=== PATIENT | female | born 1950 | race Caucasian/White ===

== ENCOUNTER → 2018-05-28 09:33 | Outpatient (CLI) | payer MEDICARE, SELFPAY ==
[2018-05-28 12:01] LABS: Absolute Lymphocyte Count 2.62 X10^3/ul (0.83-4.51); Absolute Neutrophil Count 2.7 X10^3/uL (2.0-7.7); Basophil# 0.01 X10^3/uL; Basophil% 0.2 % (0-1); Eosinophil# 0.11 X10^3/uL; Eosinophils% 1.8 % (0-5); Hematocrit 41.4 % (37-47); Hemoglobin 13.6 g/dl (12.0-15.0); Lymphocyte # 2.62 X10^3/ul (4.0); Lymphocyte % 43.2 % (19-41); Mean Corp Hgb Conc 32.9 g/gl (32-36); Mean Corpuscular Hgb 28.9 pg (27.0-32.0); Mean Corpuscular Volume 88.1 fL (81-99); Mean Platelet Vol. 10.1 fl (6.2-12.0); Monocyte# 0.56 X10^3/uL; Monocyte% 9.2 % (0-10); Neutrophil # 2.74 X10^3/uL (2.7-7.7); Neutrophil % 45.3 % (47-70); Platelet Count 298 K/mm3 (150-450); RBC Distribution Width CV 13.1 % (11.6-14.6); RBC Distribution Width SD 41.9 fl (35.1-43.9); White Blood Count 6.1 K/mm3 (4.4-11.0)
[2018-05-28 12:08] LABS: POSITIVE COUNT NO; POSITIVE DIFFERENTIAL NO; POSITIVE MORPHOLOGY NO
[2018-05-28 12:19] LABS: AST(SGOT) 21 U/L (15-37); Alanine Aminotransfer ALT/SGPT 24 U/L (13-56); Albumin, Serum 3.7 g/dL (3.2-5.0); Alkaline Phosphatase 70 U/L (45-117); Anion Gap 12 (5-15); BUN 15 mg/dL (7-18); BUN/Creat Ratio 25.1 RATIO (10-20); Chloride 99 mmol/L (98-107); Cholesterol 305 mg/dL (200); EST Glomerular Filtration Rate 106 mL/min (>60); Est Glom Filt Rate - Afr Amer 128 mL/min (>60); Globulin 3.8 g/dL (2.2-4.2); Glucose 107 mg/dL (74-106); High Density Lipoprotein 56 mg/dL; Potassium 4.3 mmol/L (3.5-5.1); Protein, Total 7.5 g/dL (6.4-8.2); Sodium Level 138 mmol/L (136-145); Thyroid Stim Hormone (TSH) 1.25 uIU/mL (0.358-3.74); Triglycerides 275 mg/dL; Very Low Density Lipoprotein 55 mg/dL (5-40)
[2018-05-28 12:24] LABS: Vitamin B12 357 pg/mL (211-911)
== END ==
PROVIDERS: Family Provider Family Medicine; PCP Family Medicine; Visit Provider Family Medicine
DX: E78.5 Hyperlipidemia, unspecified (principal); I10 Essential (primary) hypertension; I65.29 Occlusion and stenosis of unspecified carotid artery; R53.83 Other fatigue
CPT/HCPCS: 36415; 80053; 80061; 82306; 82607; 84443; 85025

== ENCOUNTER → 2018-09-18 12:59 | Outpatient (CLI) | payer MEDICARE, SELFPAY ==
--- NOTE | 2018-09-18 13:02 | BI_ITS ---
MAMMOGRAPHY - BILATERAL SCREENING REASON FOR EXAM: Female, 68 years old. Routine annual screening examination. PERTINENT HISTORY: Non-contributory. Occasional right nipple discomfort. TECHNIQUE: Digital bilateral breast gabriel (3D mammographic acquisition) in the CC and MLO projections. 2-D mediolateral oblique (MLO) and craniocaudad (CC) views of both breasts were obtained. CAD: Full Field Digital Mammography with Computer Added Detection was performed. COMPARISON: Comparison is made with prior arteriogram examination dated April 18, 2008. FINDINGS: Breast Composition: The breasts are almost entirely fatty. There are no dominant masses or suspicious calcifications. Stable small bilateral axillary lymph nodes. No other significant abnormalities are identified. There has been no significant change since the prior study. BI/SCREENING MAMM (CAD), BILAT IMPRESSION: Stable bilateral screening mammogram. Yearly follow-up mammogram recommended. (A) ASSESSMENT CATEGORY: BIRADS Category 2: Benign. A letter regarding these results will be sent to the patient by the facility within 30 days. Approximately 10% of breast cancers are not detected by mammography. A normal mammogram should not delay biopsy of a clinically suspicious abnormality. [id number] Electronically Signed: Sal Hill MD at 15:21 EST Tel [phone], Service support ,
== END ==
PROVIDERS: Family Provider Family Medicine; PCP Family Medicine; Referring Provider Family Medicine; Visit Provider Family Medicine
DX: Z12.31 Encounter for screening mammogram for malignant neoplasm of breast (principal)
CPT/HCPCS: 77063; 77067

== ENCOUNTER → 2018-10-02 08:43 | Outpatient (CLI) | payer MEDICARE, SELFPAY ==
[2018-10-02 12:55] LABS: Hemoglobin A1c 6.3 % (4.2-6.3)
[2018-10-02 13:09] LABS: ALB/GLOB Ratio 1.1 RATIO (0.9-2.4); AST(SGOT) 19 U/L (15-37); Alanine Aminotransfer ALT/SGPT 20 U/L (13-56); Albumin, Serum 3.6 g/dL (3.2-5.0); Alkaline Phosphatase 60 U/L (45-117); Anion Gap 9 (5-15); BUN 18 mg/dL (7-18); BUN/Creat Ratio 31.5 RATIO (10-20); Calcium,Total 8.9 mg/dL (8.5-10.1); Chloride 101 mmol/L (98-107); Cholesterol 302 mg/dL (200); Creatinine, Serum 0.57 mg/dL (0.55-1.02); EST Glomerular Filtration Rate 111 mL/min (>60); Est Glom Filt Rate - Afr Amer 135 mL/min (>60); Globulin 3.4 g/dL (2.2-4.2); Glucose 104 mg/dL (74-106); High Density Lipoprotein 57 mg/dL; Sodium Level 139 mmol/L (136-145); Triglycerides 231 mg/dL; Very Low Density Lipoprotein 46 mg/dL (5-40)
--- OUTSIDE RECORDS SUMMARY | 2018-11-13 21:33 | XMS RPT_ITS ---
:1950 Author Organization [facility] Care Team Providers Name Role Phone Malys, Rosalina Attending Unavailable Malys, Rosalina Primary Care Unavailable Malys, Rosalina Attending Unavailable Malys, Rosalina Primary Care Unavailable Malys, Rosalina Attending Unavailable Malys, Rosalina Primary Care Unavailable Malys, Rosalina Attending Unavailable Malys, Rosalina Referring Unavailable Malys, Rosalina Primary Care Unavailable PROBLEMS PROBLEMS DATE TYPE CONDITION / CODE ATTENDING STATUS SOURCE 10/24/2017 Unknown E78.5 - Malys, Rosalina Active [place] Hyperlipidemia, Community unspecified / Hospital E78.5(ICD-10) Repository 10/24/2017 Unknown I10 - Essential Malys, Rosalina Active [place] (primary) Community hypertension / Hospital I10(ICD-10) Repository 10/24/2017 Unknown M81.0 - Malkelsey, Rosalina Active [place] Age-related [facility]ly [facility] osteoporosis Hospital without current Repository pathological fracture / M81.0(ICD-10) 10/24/2017 Unknown 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, 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 stenosis of Community unspecified Hospital carotid artery / Repository I65.29(ICD-10) 10/24/2017 Unknown E55.9 - Vitamin D Malys, Rosalina Active [place] deficiency, Community unspecified / Hospital E55.9(ICD-10) Repository 10/24/2017 Unknown E53.8 - Deficiency Malys, Rosalina Active [place] of other specified Community B group vitamins / Hospital E53.8(ICD-10) Repository 10/24/2017 Unknown R53.83 - Other Malys, Rosalina Active [place] fatigue / Community R53.83(ICD-10) Hospital Repository 10/24/2017 Unknown Z51.81 - Encounter Rosalina Valentine Active [place] for therapeutic Community drug level Hospital monitoring / Repository Z51.81(ICD-10) PROCEDURES PROCEDURES No Procedure Records FoundRESULTS RESULTS HEMOGLOBIN A1C Collected: 10/02/2018 Status: F Source: [place] 8:46 AM [facility] REPOSITORY TYPE CODE TESTS RESULT OUT OF RANGE REFERENCE UNITS LAB L501.9985 4.2-6.3 % Normal HGB A1C 6.3 Performed By: #### L501.9985 #### [facility] [address] [place], [address] COMPREHENSIVE METABOLIC Collected: 10/02/2018 Status: F Source: [facility] 8:46 AM [facility] REPOSITORY TYPE CODE TESTS RESULT OUT OF RANGE REFERENCE UNITS LAB L501.0100 74-106 mg/dL Normal GLU 104 Result Comment: Fasting Glucose result from 100 to 125 mg/dL suggests IMPAIRED HOMEOSTASIS per A.D.A. criteria. Please note revised GLUCOSE reference range effective 2017. LAB L501.1000 7-18 mg/dL Normal BUN 18 LAB L501.1100 0.55-1.02 mg/dL Normal CREAT,SERUM 0.57 Result Comment: The validity of the calculated GFR AND GFRAA in patients over 70 years has not been determined. Clinical correlation is essential. LAB L501.1110 >60 mL/min Normal EST GFR 111 Result Comment: Non- GFR Calc LAB L501.1115 >60 mL/min Normal EST GFR - AA 135 Result Comment: GFR Calc LAB L501.1300 10-20 RATIO High BUN/CRE 31.5 LAB L501.1500 6.4-8.2 g/dL T Normal PROT 7.0 LAB L501.1800 3.2-5.0 g/dL Normal ALB 3.6 LAB L501.1950 2.2-4.2 g/dL Normal GLOB 3.4 LAB L501.2000 0.9-2.4 RATIO Normal A/G 1.1 LAB L501.2200 8.5-10.1 mg/dL CA Normal 8.9 LAB L501.4100 15-37 U/L Normal AST 19 LAB L501.4305 45-117 U/L Normal ALK P 60 LAB L501.4405 13-56 U/L Normal ALT 20 LAB L501.4600 0.20-1.00 mg/dL T Normal BILI 0.40 LAB L501.5300 136-145 mmol/L NA Normal 139 LAB L501.5600 3.5-5.1 mmol/L K Normal 4.0 LAB L501.5900 98-107 mmol/L CL Normal 101 LAB L501.6100 21.0-32.0 mmol/L Normal CO2 29.0 LAB L501.6200 5-15 Normal GAP 9 Performed By: #### L500.4050, L500.4100 #### [facility] [address] [place], [place], [address] LIPID PROFILE Collected: 10/02/2018 Status: F Source: [place] 8:46 AM [facility] REPOSITORY TYPE CODE TESTS RESULT OUT OF RANGE REFERENCE UNITS LAB L501.4900 200 mg/dL High CHOL 302 Result Comment: <200 mg/dL Desirable 200-240 mg/dL Borderline >240 mg/dL High Risk LAB L501.5000 mg/dL High TRIG 231 Result Comment: The drugs N-Acetylcysteine and Metamizole may falsely depress this assay. Serum Triglycerides Reference Interval Normal <150 mg/dL Borderline high 150 - 199 mg/dL High 200 - 499 mg/dL Very High > or = 500 mg/dL LAB L501.6400 mg/dL Normal HDL 57 Result Comment: The drugs N-Acetylcysteine and Metamizole may falsely depress this assay. Reference Range HDL <40 mg/dL Low HDL Cholesterol HDL >or= 60 mg/dL High HDL Cholesterol LAB L501.6500 0-130 mg/dL High LDL 199 LAB L501.6600 5-40 mg/dL High VLDL 46 Performed By: #### L500.4050, L500.4100 #### [facility] [address] [place], [address] SCREENING MAMM (CAD), Observed: 09/18/2018 Status: F Source: [place] BIL[place] 1:02 PM [facility] REPOSITORY [facility] Imaging Services [address] [place] [address] SCREENING MAMM (CAD), BILAT MR#: [id number] Acct: [id number] Name: JACQUI MAS Rep #: [id number] : 1950 F 68 From: Sal Hill MD PCP: Rosalina Valentine DO Status: REG CLI Study: SCREENING MAMM (CAD), BILAT Date of Exam: 09/18/18 Exam# [id number] Ordering Dr: Rosalina Valentine DO MAMMOGRAPHY - BILATERAL SCREENING REASON FOR EXAM: Female, 68 years old. Routine annual screening examination. PERTINENT HISTORY: Non-contributory. Occasional right nipple discomfort. TECHNIQUE: Digital bilateral breast gabriel (3D mammographic acquisition) in the CC and MLO projections. 2-D mediolateral oblique (MLO) and craniocaudad (CC) views of both breasts were obtained. CAD: Full Field Digital Mammography with Computer Added Detection was performed. COMPARISON: Comparison is made with prior arteriogram examination dated April 18, 2008. FINDINGS: Breast Composition: The breasts are almost entirely fatty. There are no dominant masses or suspicious calcifications. Stable small bilateral axillary lymph nodes. No other significant abnormalities are identified. There has been no significant change since the prior study. BI/SCREENING MAMM (CAD), BILAT IMPRESSION: Stable bilateral screening mammogram. Yearly follow-up mammogram recommended. (A) ASSESSMENT CATEGORY: BIRADS Category 2: Benign. A letter regarding these results will be sent to the patient by the facility within 30 days. Approximately 10% of breast cancers are not detected by mammography. A normal mammogram should not delay biopsy of a clinically suspicious abnormality. 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 CBC W/DIFF, AUTOMATED Collected: 05/28/2018 Status: F Source: [place] 9:38 AM [facility] REPOSITORY TYPE CODE TESTS RESULT OUT OF RANGE REFERENCE UNITS LAB L100.1000 4.4-11.0 K/mm3 Normal WBC 6.1 LAB L100.1200 4.2-5.4 M/mm3 Normal RBC 4.70 LAB L100.1300 12.0-15.0 g/dl Normal HGB 13.6 LAB L100.1400 37-47 % Normal HCT 41.4 LAB L100.1500 81-99 fL Normal MCV 88.1 LAB L100.1600 27.0-32.0 pg Normal MCH 28.9 LAB L100.1700 32-36 g/gl Normal MCHC 32.9 LAB L100.1810 11.6-14.6 % Normal RDW CV 13.1 LAB L100.1820 35.1-43.9 fl Normal RDW SD 41.9 LAB L100.1900 150-450 K/mm3 Normal PLT 298 LAB L100.2000 6.2-12.0 fl Normal MPV 10.1 LAB L100.2100 47-70 % Low NEUT% 45.3 LAB L100.2200 19-41 % High LY% 43.2 LAB L100.2300 0-10 % Normal MONO% 9.2 LAB L100.2400 0-5 % Normal EO% 1.8 LAB L100.2500 0-1 % Normal BASO% 0.2 LAB L100.2550 0.0-0.9 % Normal IM GRAN % 0.300 Result Comment: IG% - Immature Granulocytes (promyelocytes, myelocytes and metamyelocytes) > 1% indicates that a LEFT SHIFT is Present. LAB L100.2620 2.0-7.7 X10 3/uL Normal Absolute Neut 2.7 LAB L100.2720 0.83-4.51 X10 3/ul Normal Absolute Lymph 2.62 Performed By: #### L100.0100 #### [facility] [address] [place], [address] COMPREHENSIVE METABOLIC Collected: 05/28/2018 Status: F Source: [facility] 9:38 AM [facility] REPOSITORY TYPE CODE TESTS RESULT OUT OF RANGE REFERENCE UNITS LAB L501.0100 74-106 mg/dL High GLU 107 Result Comment: Fasting Glucose result from 100 to 125 mg/dL suggests IMPAIRED HOMEOSTASIS per A.D.A. criteria. Please note revised GLUCOSE reference range effective 2017. LAB L501.1000 7-18 mg/dL Normal BUN 15 LAB L501.1100 0.55-1.02 mg/dL Normal CREAT,SERUM 0.60 Result Comment: The validity of the calculated GFR AND GFRAA in patients over 70 years has not been determined. Clinical correlation is essential. LAB L501.1110 >60 mL/min Normal EST GFR 106 Result Comment: Non- GFR Calc LAB L501.1115 >60 mL/min Normal EST GFR - AA 128 Result Comment: GFR Calc LAB L501.1300 10-20 RATIO High BUN/CRE 25.1 LAB L501.1500 6.4-8.2 g/dL T Normal PROT 7.5 LAB L501.1800 3.2-5.0 g/dL Normal ALB 3.7 LAB L501.1950 2.2-4.2 g/dL Normal GLOB 3.8 LAB L501.2000 0.9-2.4 RATIO Normal A/G 1.0 LAB L501.2200 8.5-10.1 mg/dL CA Normal 9.0 LAB L501.4100 15-37 U/L Normal AST 21 LAB L501.4305 45-117 U/L Normal ALK P 70 LAB L501.4405 13-56 U/L Normal ALT 24 LAB L501.4600 0.20-1.00 mg/dL T Normal BILI 0.30 LAB L501.5300 136-145 mmol/L NA Normal 138 LAB L501.5600 3.5-5.1 mmol/L K Normal 4.3 LAB L501.5900 98-107 mmol/L CL Normal 99 LAB L501.6100 21.0-32.0 mmol/L Normal CO2 27.0 LAB L501.6200 5-15 Normal GAP 12 Performed By: #### L500.4050, L500.4100, L501.9520 #### [facility] [address] [facility] [place], [address] LIPID PROFILE Collected: 05/28/2018 Status: F Source: [place] 9:38 AM [facility] REPOSITORY TYPE CODE TESTS RESULT OUT OF RANGE REFERENCE UNITS LAB L501.4900 200 mg/dL High CHOL 305 Result Comment: <200 mg/dL Desirable 200-240 mg/dL Borderline >240 mg/dL High Risk LAB L501.5000 mg/dL High TRIG 275 Result Comment: The drugs N-Acetylcysteine and Metamizole may falsely depress this assay. Serum Triglycerides Reference Interval Normal <150 mg/dL Borderline high 150 - 199 mg/dL High 200 - 499 mg/dL Very High > or = 500 mg/dL LAB L501.6400 mg/dL Normal HDL 56 Result Comment: The drugs N-Acetylcysteine and Metamizole may falsely depress this assay. Reference Range HDL <40 mg/dL Low HDL Cholesterol HDL >or= 60 mg/dL High HDL Cholesterol LAB L501.6500 0-130 mg/dL High LDL 194 LAB L501.6600 5-40 mg/dL High VLDL 55 Performed By: #### L500.4050, L500.4100, L501.9520 #### [facility] [address] [facility], [address] THYROID STIM HORMONE Collected: 05/28/2018 Status: F Source: [place] (TSH) 9:38 AM [facility] REPOSITORY TYPE CODE TESTS RESULT OUT OF RANGE REFERENCE UNITS LAB L501.9520 0.358-3.74 uIU/mL Normal TSH 1.25 Performed By: #### L500.4050, L500.4100, L501.9520 #### [facility] [address], [address] VITAMIN B12 Collected: 05/28/2018 Status: F Source: [place] 9:38 AM [facility] REPOSITORY TYPE CODE TESTS RESULT OUT OF RANGE REFERENCE UNITS LAB L503.0105 211-911 pg/mL Normal Vitamin B12 357 Performed By: #### L503.0105, L506.1000 #### [facility] [address] [place], [address] VITAMIN D,25 HYDROXY Collected: 05/28/2018 Status: F Source: [place] 9:38 AM [facility] REPOSITORY TYPE CODE TESTS RESULT OUT OF REFERENCE UNITS RANGE LAB L506.1000 29.95-100.01 ng/mL Low Vitamin D 29.0 25-OH Result Comment: Vitamin D 25(OH) Status Range Deficiency <20 ng/mL (50nmol/L) Insuffciency 20 - 30 ng/mL (50 - 75 nmol/L) Sufficiency 30 - 100 ng/mL (75 - 250 nmol/L) Toxicity >100 ng/mL (>250 nmol/L) Performed By: #### L503.0105, L506.1000 #### [facility] [address] [place], [address] CBC W/DIFF, AUTOMATED Collected: 10/24/2017 Status: F Source: [place] 9:52 AM [facility] REPOSITORY TYPE CODE TESTS RESULT OUT OF RANGE REFERENCE UNITS LAB L100.1000 4.4-11.0 K/mm3 Normal WBC 5.7 LAB L100.1200 4.2-5.4 M/mm3 Normal RBC 4.78 LAB L100.1300 12.0-15.0 g/dl Normal HGB 13.9 LAB L100.1400 37-47 % Normal HCT 42.1 LAB L100.1500 81-99 fL Normal MCV 88.1 LAB L100.1600 27.0-32.0 pg Normal MCH 29.1 LAB L100.1700 32-36 g/gl Normal MCHC 33.0 LAB L100.1810 11.6-14.6 % Normal RDW CV 12.5 LAB L100.1820 35.1-43.9 fl Normal RDW SD 39.9 LAB L100.1900 150-450 K/mm3 Normal PLT 304 LAB L100.2000 6.2-12.0 fl Normal MPV 10.2 LAB L100.2100 47-70 % Low NEUT% 42.4 LAB L100.2200 19-41 % High LY% 45.6 LAB L100.2300 0-10 % Normal MONO% 9.8 LAB L100.2400 0-5 % Normal EO% 1.8 LAB L100.2500 0-1 % Normal BASO% 0.2 LAB L100.2550 0.0-0.9 % Normal IM GRAN % 0.200 Result Comment: IG% - Immature Granulocytes (promyelocytes, myelocytes and metamyelocytes) > 1% indicates that a LEFT SHIFT is Present. LAB L100.2620 2.0-7.7 X10 3/uL Normal Absolute Neut 2.4 LAB L100.2720 0.83-4.51 X10 3/ul Normal Absolute Lymph 2.60 Performed By: #### L100.0100 #### [facility] [address] [place], [place], [address] COMPREHENSIVE METABOLIC Collected: 10/24/2017 Status: F [facility] REPOSITORY TYPE CODE TESTS RESULT OUT OF RANGE REFERENCE UNITS LAB L501.0100 70-110 mg/dL Normal GLU 108 LAB L501.1000 7-18 mg/dL Normal BUN 13 LAB L501.1100 0.55-1.02 mg/dL Normal 0.58 CREAT,SERUM Result Comment: The validity of the calculated GFR AND GFRAA in patients over 70 years has not been determined. Clinical correlation is essential. LAB L501.1110 >60 mL/min Normal EST GFR 109 Result Comment: Non- GFR Calc LAB L501.1115 >60 mL/min Normal EST GFR - AA 132 Result Comment: GFR Calc LAB L501.1300 10-20 RATIO High BUN/CRE 22.2 LAB L501.1500 6.4-8.2 g/dL T Normal PROT 7.4 LAB L501.1800 3.4-5.0 g/dL Normal ALB 3.9 Result Comment: Please note revised Albumin AND Globulin reference range effective 2017. LAB L501.1950 2.2-4.2 g/dL Normal GLOB 3.5 LAB L501.2000 0.9-2.4 RATIO Normal A/G 1.1 LAB L501.2200 8.5-10.1 mg/dL Normal CA 8.8 LAB L501.4100 15-37 U/L Normal AST 21 LAB L501.4305 45-117 U/L Normal ALK P 75 LAB L501.4405 12-78 U/L Normal ALT 23 LAB L501.4600 0.20-1.00 mg/dL Normal T BILI 0.40 LAB L501.5300 136-145 mmol/L Normal NA 137 LAB L501.5600 3.5-5.1 mmol/L Normal K 4.1 LAB L501.5900 98-107 mmol/L Normal CL 101 LAB L501.6100 21.0-32.0 mmol/L Normal CO2 26.0 LAB L501.6200 5-15 Normal GAP 10 Performed By: #### L500.4050, L500.4100, L501.9520 #### [facility] [address] [place], [address] LIPID PROFILE Collected: 10/24/2017 Status: F Source: [place] 9:52 AM [facility] REPOSITORY TYPE CODE TESTS RESULT OUT OF RANGE REFERENCE UNITS LAB L501.4900 200 mg/dL High CHOL 285 Result Comment: <200 mg/dL Desirable 200-240 mg/dL Borderline >240 mg/dL High Risk LAB L501.5000 mg/dL High TRIG 209 Result Comment: The drugs N-Acetylcysteine and Metamizole may falsely depress this assay. Serum Triglycerides Reference Interval Normal <150 mg/dL Borderline high 150 - 199 mg/dL High 200 - 499 mg/dL Very High > or = 500 mg/dL LAB L501.6400 mg/dL Normal HDL 61 Result Comment: The drugs N-Acetylcysteine and Metamizole may falsely depress this assay. Reference Range HDL <40 mg/dL Low HDL Cholesterol HDL >or= 60 mg/dL High HDL Cholesterol LAB L501.6500 0-130 mg/dL High LDL 182 LAB L501.6600 5-40 mg/dL High VLDL 42 Performed By: #### L500.4050, L500.4100, L501.9520 #### [facility] [address] [place], [address] THYROID STIM HORMONE Collected: 10/24/2017 Status: F Source: [place] (TSH) 9:52 AM [facility] REPOSITORY TYPE CODE TESTS RESULT OUT OF RANGE REFERENCE UNITS LAB L501.9520 0.358-3.74 uIU/mL Normal TSH 1.20 Performed By: #### L500.4050, L500.4100, L501.9520 #### [facility] [address] [place], [address] VITAMIN B12 Collected: 10/24/2017 Status: F Source: [place] 9:52 AM [facility] REPOSITORY TYPE CODE TESTS RESULT OUT OF RANGE REFERENCE UNITS LAB L503.0105 211-911 pg/mL Normal Vitamin B12 527 Performed By: #### L503.0105, L506.1000 #### [facility] [address] [place], [address] VITAMIN D,25 HYDROXY Collected: 10/24/2017 Status: F Source: [place] 9:52 AM [facility] REPOSITORY TYPE CODE TESTS RESULT OUT OF RANGE REFERENCE UNITS LAB L506.1000 ng/mL Normal Vitamin D 34.7 25-OH Result Comment: Vitamin D 25(OH) Status Range Deficiency <20 ng/mL (50nmol/L) Insuffciency 20 - 30 ng/mL (50 - 75 nmol/L) Sufficiency 30 - 100 ng/mL (75 - 250 nmol/L) Toxicity >100 ng/mL (>250 nmol/L) Performed By: #### L503.0105, L506.1000 #### [facility] [address] [place], [address] ALLERGIES ALLERGIES No Allergies Records FoundENCOUNTERS ENCOUNTERS ADMIT/DISCHARGE ACCOUNT ADMITTING ENCOUNTER LOCATION SOURCE NUMBER CLASS 10/02/2018 [id number] Ambulatory [facility] 1 [facility] ing:LAB.FUTUR Repository E 09/18/2018 [id number] Amb[facility] [place] 2 [facility] ing:OPBI Repository 05/28/2018 [id number] Amb[facility] [place] 0 [facility] ing:LAB.FUTUR Repository E 10/24/2017 [id number] Ambulatory [place] 4 [facility] ing:LAB.FUTUR Repository E PAYERS PAYERS ENCOUNTER GUARANTOR PAYER SUBSCRIBER SOURCE 10/02/2018 JACQUI Ellis Primary Insurance:MMO JACQUI Ellis [place] [id number] DIPIKA MEDICAREPolicy SUSTARDOB: [place], [place] Number: [id number] [facility] [address]Zpw: 330 [id number] Repository [phone] () Date:[id number] [address] [id number]: 10/02/2018 Secondary NOT GIVENUNK [place] Insurance:SELF PAY [facility] Number: Effective Repository Date:2018-08-29 09/18/2018 THEA Tejeda Primary Insurance:MMO JACQUI Lópezoster [id number] DIPIKA MEDICAREPolicy SUSTARDOB: [place], [place] Number: [id number] Hospital [address]Qow: 330 [id number] Repository [phone] () Date:[id number] [address] [address]DU: 09/18/2018 Secondary NOT GIVENUNK [place] Insurance:SELF PAY [facility] Number: Effective Repository Date:2018-09-06 05/28/2018 Thea Tejeda Primary Insurance:MMO JACQUI Lópezoster [id number] Dipika MEDICAREPolicy SUSTARDOB: [place], [place] Number: [id number] Hospital [address]Llo: 330 [id number] Repository [phone] () Date:[id number] [address] [address]CX: 05/28/2018 Secondary NOT GIVENUNK [place] Insurance:SELF PAY [facility] Number: Effective Repository Date:2018-04-17 10/24/2017 Thea Tejeda Primary Insurance:JUANO JACQUI Pham [id number] Dipika MEDICAREPolicy SUSTARDOB: [place], [place] Number: [id number] [facility] [address]Rxq: [phone] [id number] Repository [phone] () Date:[id number], [place] [address]UU: 10/24/2017 Secondary NOT GIVENUNK [place] Insurance:SELF PAY [facility] Number: Effective Repository Date:2017-10-23
== END ==
PROVIDERS: Family Provider Family Medicine; PCP Family Medicine; Visit Provider Family Medicine
DX: E78.5 Hyperlipidemia, unspecified (principal); R73.01 Impaired fasting glucose; Z51.81 Encounter for therapeutic drug level monitoring
CPT/HCPCS: 36415; 80053; 80061; 83036

== ENCOUNTER → 2019-08-02 09:28 | Outpatient (CLI) | payer MEDICARE, SELFPAY ==
[2019-08-02 12:21] LABS: Absolute Lymphocyte Count 2.56 X10^3/uL (0.83-4.51); Absolute Neutrophil Count 2.4 X10^3/uL (2.0-7.7); Basophil# 0.03 X10^3/uL; Basophil% 0.5 % (0-1); Eosinophil# 0.09 X10^3/uL; Eosinophils% 1.6 % (0-5); Hematocrit 42.6 % (37-47); Hemoglobin 13.4 g/dL (12.0-15.0); Lymphocyte # 2.56 X10^3/ul (4.0); Lymphocyte % 45.9 % (19-41); Mean Corp Hgb Conc 31.5 g/dL (32-36); Mean Corpuscular Hgb 28.2 pg (27.0-32.0); Mean Corpuscular Volume 89.5 fL (81-99); Mean Platelet Vol. 9.9 fl (6.2-12.0); NRBC Flagged by Analyzer 0 % (0-5); Neutrophil # 2.38 X10^3/uL (2.7-7.7); Neutrophil % 42.6 % (47-70); Platelet Count 337 K/mm3 (150-450); RBC Distribution Width CV 12.3 % (11.6-14.6); RBC Distribution Width SD 40.5 fl (35.1-43.9); Red Blood Count 4.76 M/mm3 (4.2-5.4); White Blood Count 5.6 K/mm3 (4.4-11.0)
[2019-08-02 12:37] LABS: Progesterone Level 0.56 ng/mL (See Comment); Vitamin D,25 Hydroxy 41.1 ng/mL (29.95-100.01)
[2019-08-02 14:09] LABS: ALB/GLOB Ratio 1.1 RATIO (0.9-2.4); AST(SGOT) 19 U/L (15-37); Alanine Aminotransfer ALT/SGPT 20 U/L (13-56); Albumin, Serum 3.7 g/dL (3.2-5.0); Alkaline Phosphatase 71 U/L (45-117); Anion Gap 9 (5-15); BUN 11 mg/dL (7-18); BUN/Creat Ratio 20.3 RATIO (10-20); CRP 3.24 mg/L (0.0-3.0); Calcium,Total 8.9 mg/dL (8.5-10.1); Chloride 104 mmol/L (98-107); Cholesterol 292 mg/dL (200); Creatinine, Serum 0.54 mg/dL (0.55-1.02); EST Glomerular Filtration Rate 118 mL/min (>60); Est Glom Filt Rate - Afr Amer 143 mL/min (>60); Estradiol < 11.0 pg/mL; Free T3 3.3 pg/mL (2.18-3.98); Globulin 3.4 g/dL (2.2-4.2); Glucose 106 mg/dL (74-106); High Density Lipoprotein 57 mg/dL; Potassium 4.1 mmol/L (3.5-5.1); Protein, Total 7.1 g/dL (6.4-8.2); Sodium Level 142 mmol/L (136-145); T4 Free Direct 1.08 ng/dL (0.76-1.46); Thyroid Stim Hormone (TSH) 1.42 uIU/mL (0.358-3.74); Triglycerides 239 mg/dL; Very Low Density Lipoprotein 48 mg/dL (5-40)
[2019-08-03 06:07] LABS: DHEA Sulfate 141.6 ug/dL (20.4-186.6)
[2019-08-03 11:39] LABS: Thyroid Peroxidase AB 13 IU/mL (0-34)
== END ==
PROVIDERS: Family Provider Family Medicine; PCP Family Medicine; Referring Provider Preventive Medicine Public Health & General Preventive Medicine; Visit Provider Preventive Medicine Public Health & General Preventive Medicine
DX: E03.9 Hypothyroidism, unspecified (principal); E34.9 Endocrine disorder, unspecified; N95.1 Menopausal and female climacteric states; E55.9 Vitamin D deficiency, unspecified; E27.49 Other adrenocortical insufficiency; I10 Essential (primary) hypertension; E78.5 Hyperlipidemia, unspecified
CPT/HCPCS: 36415; 80053; 80061; 82306; 82533; 82627; 82670; 84144; 84403; 84439; 84443; 84481; 85025; 86140; 86376; 82626

== ENCOUNTER → 2020-03-03 08:57 | Outpatient (CLI) | payer MEDICARE, SELFPAY ==
--- NOTE | 2020-03-03 09:01 | US_ITS ---
STUDY: ULTRASOUND BREAST - LEFT REASON FOR EXAM: Female, 69 years old. Swelling/palpable lump in the left axillary region. TECHNIQUE: Axial and longitudinal images of the LEFT breast were performed with a high resolution ultrasound transducer. # OF IMAGES: 24 COMPARISON: Comparison is made with prior mammogram done earlier in the day. FINDINGS: LEFT Breast: The palpable abnormality corresponds to a 1.7 cm x 1.2 cm x 0.9 cm benign-appearing lymph node. US/Breast Limited Unilateral IMPRESSION: The palpable abnormality corresponds to a 1.7 cm x 1.2 cm x 0.9 cm x 9 appearing lymph node. ASSESSMENT CATEGORY: BIRADS Category 2: Benign. A letter regarding these results will be sent to the patient by the facility within 30 days. Electronically Signed: Sal Hill, at 11:54 EDT , Service support ,
--- NOTE | 2020-03-03 09:01 | BI_ITS ---
MAMMOGRAPHY - BILATERAL DIAGNOSTIC REASON FOR EXAM: Female, 69 years old. Left axillary swelling for 2 weeks. PERTINENT HISTORY: Non-contributory. TECHNIQUE: Digital bilateral breast garbiel (3D mammographic acquisition) in the CC and MLO projections. 2-D mediolateral oblique (MLO) and craniocaudad (CC) views of both breasts were obtained. CAD: Full Field Digital Mammography with Computer Added Detection was performed. COMPARISON: Comparison is made with prior examination dated September 18, 2018. FINDINGS: Breast Composition: The breasts are almost entirely fatty. There are no dominant masses or suspicious calcifications. Stable benign-appearing bilateral axillary lymph nodes. Stable scattered calcifications in the right breast. No other significant abnormalities are identified. There has been no significant change since the prior study. BI/DIAG MAMM W/CAD, BILAT IMPRESSION: Stable bilateral diagnostic mammogram. With the patient''s history of left axillary swelling, correlation with ultrasound of the left breast is recommended for further evaluation. ASSESSMENT CATEGORY: BIRADS Category 0: Incomplete. Need additional imaging evaluation. A letter regarding these results will be sent to the patient by the facility within 30 days. Approximately 10% of breast cancers are not detected by mammography. A normal mammogram should not delay biopsy of a clinically suspicious abnormality. Electronically Signed: Sal Hill, at 11:28 EDT , Service support ,
== END ==
PROVIDERS: PCP Family Medicine; Referring Provider Family Medicine; Visit Provider Family Medicine
DX: N63.20 Unspecified lump in the left breast, unspecified quadrant (principal)
CPT/HCPCS: 76642; 77062; 77066; G0279

== ENCOUNTER → 2020-06-05 07:52 | Outpatient (CLI) | payer MEDICARE, SELFPAY ==
--- NOTE | 2020-06-05 07:54 | US_ITS ---
STUDY: ULTRASOUND BREAST - LEFT REASON FOR EXAM: Female, 69 years old. Follow-up for left axillary lymph node. TECHNIQUE: Axial and longitudinal images of the LEFT breast were performed with a high resolution ultrasound transducer. # OF IMAGES: 27 COMPARISON: Comparison is made with prior ultrasound of the left breast dated 03/03/2020. FINDINGS: LEFT Breast: There is a 1.4 cm x 1.6 cm x 1 cm benign appearing lymph node in the axillary region. Adjacent to this, a similar appearing lymph node measuring 1.4 cm x 1.4 cm x 0.9 cm is seen. US/Breast Limited Unilateral IMPRESSION: Findings in keeping with the 2 benign-appearing left axillary lymph nodes. ASSESSMENT CATEGORY: BIRADS Category 2: Benign. A letter regarding these results will be sent to the patient by the facility within 30 days. Electronically Signed: Sal Hill, at 12:31 EDT , Service support ,
== END ==
PROVIDERS: PCP Family Medicine; Referring Provider Family Medicine; Visit Provider Family Medicine
DX: N63.21 Unspecified lump in the left breast, upper outer quadrant (principal)
CPT/HCPCS: 76642

== ENCOUNTER → 2020-10-07 11:54 | Outpatient (CLI) | payer MEDICARE, SELFPAY ==
[2020-10-07 15:57] LABS: Free T3 3.8 pg/mL (2.18-3.98); T4 Free Direct 1.09 ng/dL (0.76-1.46); Thyroid Stim Hormone (TSH) 0.65 uIU/mL (0.358-3.74)
== END ==
PROVIDERS: PCP Family Medicine; Visit Provider Family Medicine
DX: E03.9 Hypothyroidism, unspecified (principal)
CPT/HCPCS: 36415; 84439; 84443; 84481

== ENCOUNTER → 2021-03-29 14:16 | Outpatient (CLI) | payer MEDICARE, SELFPAY | PROVIDERS: PCP Family Medicine; Referring Provider Family Medicine; Visit Provider Family Medicine | DX: Z86.16 Personal history of COVID-19 (principal) | CPT/HCPCS: 36415; 86769 ==

== ENCOUNTER 2021-11-08 14:14 | Outpatient (CLI) | payer MEDICARE, SELFPAY | END 2021-11-08 23:59 | disposition short-term general hospital (02) | LOC: LABSPEC 14:15 | PROVIDERS: PCP Family Medicine; Visit Provider Family Medicine | DX: Z20.828 Contact with and (suspected) exposure to other viral communicable diseases (principal) | CPT/HCPCS: 87635; U0003; U0005 ==

== ENCOUNTER 2021-12-28 08:43 | Outpatient (CLI) | payer MEDICARE, SELFPAY | END 2021-12-28 23:59 | disposition home or self-care (01) | LOC: LABSPEC 08:45 | PROVIDERS: PCP Family Medicine; Visit Provider Family Medicine | DX: U07.1 COVID-19 (principal) | CPT/HCPCS: 87635; U0003; U0005 ==

== ENCOUNTER 2022-01-12 15:55 | Outpatient (CLI) | payer MEDICARE, SELFPAY ==
--- NOTE | 2022-01-12 15:58 | CT_ITS ---
STUDY: CT BRAIN WITH AND WITHOUT CONTRAST REASON FOR EXAM: Female, 71 years old. JOY/COGNITIVE CHANGES RADIATION DOSAGE (If Supplied By Facility): CTDIvol = ( 44.99 ) mGy, DLP = ( 1547.23 ) mGycm TECHNIQUE: Transaxial CT imaging of the brain was performed pre and post contrast administration. The examination was performed with intravenous administration of IV 50mL Isovue-370. Individualized dose optimization techniques were used for this CT. COMPARISON: None. FINDINGS: No evidence of intracranial hemorrhage, mass, acute infarct, or hydrocephalus. The brain has normal density and volume for age. No abnormal enhancement. No intracranial DVT. Atherosclerosis of the intracranial arteries. No acute osseous abnormality. Visualized paranasal sinuses and mastoid air cells patent. Visualized extracranial soft tissues unremarkable. ASPECTS 08/15 CT/Brain/Head W/WO Contrast IMPRESSION: No acute intracranial findings. Electronically Signed: Thor Curran MD at 0:33 EST ,
[2022-01-12 16:11] LABS: CREATININE FINGERSTICK < 0.6 mg/dL (0.55-1.02); EGFR FINGERSTICK > 60.0000 mL/min (>60)
== END 2022-01-12 23:59 | disposition home or self-care (01) ==
LOC: CT 15:57
PROVIDERS: PCP Family Medicine; Referring Provider Family Medicine; Visit Provider Family Medicine
DX: R41.89 Other symptoms and signs involving cognitive functions and awareness (principal); R51.9 Headache, unspecified; H53.9 Unspecified visual disturbance
CPT/HCPCS: 70470; Q9967

== ENCOUNTER 2022-09-21 13:01 | Outpatient (CLI) | payer MEDICARE, SELFPAY ==
--- NOTE | 2022-09-21 13:03 | BI_ITS ---
MAMMOGRAPHY - BILATERAL SCREENING REASON FOR EXAM: Female, 72 years old. Routine annual screening examination. PERTINENT HISTORY: Non-contributory. TECHNIQUE: Digital bilateral breast cindi (3D mammographic acquisition) in the CC and MLO projections. 2-D mediolateral oblique (MLO) and craniocaudad (CC) views of both breasts were obtained. CAD: Full Field Digital Mammography with Computer Added Detection was performed. COMPARISON: Comparison is made with prior study dated 09/18/2018 and 03/03/2020. FINDINGS: Breast Composition: The breasts are almost entirely fatty. There are no dominant masses or suspicious calcifications. Stable small benign-appearing bilateral axillary lymph nodes. No other significant abnormalities are identified. There has been no significant change since the prior study. BI/SCRN MAMM (CAD)W/CINDI BILAT IMPRESSION: Stable bilateral screening mammogram. Yearly follow-up mammogram recommended. (A) ASSESSMENT CATEGORY: BIRADS Category 2: Benign. A letter regarding these results will be sent to the patient by the facility within 30 days. Approximately 10% of breast cancers are not detected by mammography. A normal mammogram should not delay biopsy of a clinically suspicious abnormality. [id number] Electronically Signed: Sal Hill MD at 13:53 EST ,
== END 2022-09-21 23:59 | disposition home or self-care (01) ==
LOC: OPBI 13:01
PROVIDERS: PCP Family Medicine; Visit Provider Family Medicine
DX: Z12.31 Encounter for screening mammogram for malignant neoplasm of breast (principal)
CPT/HCPCS: 77063; 77067

== ENCOUNTER → 2022-12-05 | Outpatient (CLI) | payer MEDICARE, SELFPAY | END | disposition home or self-care (01) | PROVIDERS: PCP Family Medicine; Referring Provider Family Medicine; Visit Provider Family Medicine | DX: R19.7 Diarrhea, unspecified (principal) | CPT/HCPCS: 83630; 87493 ==

== ENCOUNTER → 2022-12-16 | Outpatient (CLI) | payer MEDICARE, SELFPAY | END | disposition home or self-care (01) | LOC: LABSPEC 10:39 | PROVIDERS: PCP Family Medicine; Visit Provider Family Medicine | DX: R19.7 Diarrhea, unspecified (principal) | CPT/HCPCS: 87493 ==

== ENCOUNTER → 2023-11-14 | Outpatient (CLI) | payer MEDICARE, SELFPAY ==
[2023-11-14 12:09] LABS: Absolute Neutrophil Count 2.7 X10^3/uL (2.0-7.7); Basophil# 0.03 X10^3/uL; Basophil% 0.5 % (0-1); Eosinophil# 0.12 X10^3/uL; Eosinophils% 1.9 % (0-5); Hematocrit 43.3 % (37-47); Hemoglobin 13.9 g/dL (12.0-15.0); Lymphocyte % 45.5 % (19-41); Mean Corp Hgb Conc 32.1 g/dL (32-36); Mean Corpuscular Hgb 28.5 pg (27.0-32.0); Mean Corpuscular Volume 88.9 fL (81-99); Mean Platelet Vol. 10.5 fl (6.2-12.0); Monocyte# 0.55 X10^3/uL; Monocyte% 8.9 % (0-10); NRBC Flagged by Analyzer 0 % (0-5); Neutrophil # 2.65 X10^3/uL (2.7-7.7); Platelet Count 323 K/mm3 (150-450); RBC Distribution Width CV 12.4 % (11.6-14.6); RBC Distribution Width SD 40.4 fl (35.1-43.9); Red Blood Count 4.87 M/mm3 (4.2-5.4); White Blood Count 6.2 K/mm3 (4.4-11.0)
[2023-11-14 12:41] LABS: AST(SGOT) 24 U/L (15-37); Alanine Aminotransfer ALT/SGPT 23 U/L (13-56); Albumin, Serum 3.6 g/dL (3.2-5.0); Alkaline Phosphatase 67 U/L (45-117); Anion Gap 4 (5-15); BUN 21 mg/dL (7-18); BUN/Creat Ratio 36.3 RATIO (10-20); Calcium,Total 9.4 mg/dL (8.5-10.1); Chloride 105 mmol/L (98-107); Cholesterol 278 mg/dL (200); Creatinine, Serum 0.58 mg/dL (0.55-1.02); EST Glomerular Filtration Rate 108 mL/min (>60); Est Glom Filt Rate - Afr Amer 131 mL/min (>60); Free T3 3.1 pg/mL (2.18-3.98); Globulin 3.5 g/dL (2.2-4.2); Glucose 109 mg/dL (74-106); High Density Lipoprotein 46 mg/dL; Potassium 4.1 mmol/L (3.5-5.1); Protein, Total 7.1 g/dL (6.4-8.2); Sodium Level 137 mmol/L (136-145); T4 Free Direct 0.93 ng/dL (0.76-1.46); Thyroid Stim Hormone (TSH) 1.16 uIU/mL (0.358-3.74); Triglycerides 157 mg/dL; Very Low Density Lipoprotein 31 mg/dL (5-40)
== END | disposition home or self-care (01) ==
LOC: BFHLAB 08:14
PROVIDERS: PCP Family Medicine; Visit Provider Family Medicine
DX: E03.9 Hypothyroidism, unspecified (principal); E78.5 Hyperlipidemia, unspecified; Z51.81 Encounter for therapeutic drug level monitoring
CPT/HCPCS: 36415; 80053; 80061; 84439; 84443; 84481; 85025

== ENCOUNTER → 2024-03-21 | Outpatient (CLI) | payer MEDICARE, SELFPAY ==
[2024-03-21 12:31] LABS: Erythrocyte Sedimentation Rate 10 mm/hr (0-30)
[2024-03-21 12:32] LABS: Absolute Lymphocyte Count 2.79 X10^3/uL (0.83-4.51); Absolute Neutrophil Count 2.9 X10^3/uL (2.0-7.7); Basophil# 0.03 X10^3/uL; Basophil% 0.5 % (0-1); Eosinophil# 0.09 X10^3/uL; Eosinophils% 1.4 % (0-5); Hematocrit 40.3 % (37-47); Lymphocyte # 2.79 X10^3/ul (0.83-4.51); Lymphocyte % 43.6 % (19-41); Mean Corp Hgb Conc 32.3 g/dL (32-36); Mean Corpuscular Hgb 28.8 pg (27.0-32.0); Mean Corpuscular Volume 89.4 fL (81-99); Mean Platelet Vol. 10.4 fl (6.2-12.0); Monocyte# 0.54 X10^3/uL; Monocyte% 8.4 % (0-10); NRBC Flagged by Analyzer 0 % (0-5); Neutrophil # 2.93 X10^3/uL (2.7-7.7); Neutrophil % 45.8 % (47-70); Platelet Count 311 K/mm3 (150-450); RBC Distribution Width CV 12.5 % (11.6-14.6); RBC Distribution Width SD 41.2 fl (35.1-43.9); Red Blood Count 4.51 M/mm3 (4.2-5.4); White Blood Count 6.4 K/mm3 (4.4-11.0)
[2024-03-21 13:03] LABS: AST(SGOT) 18 U/L (15-37); Alanine Aminotransfer ALT/SGPT 15 U/L (13-56); Albumin, Serum 3.5 g/dL (3.2-5.0); Alkaline Phosphatase 74 U/L (45-117); Anion Gap 2 (5-15); BUN 19 mg/dL (7-18); BUN/Creat Ratio 33.8 RATIO (10-20); CRP < 2.90 mg/L (0.0-3.0); Calcium,Total 9.1 mg/dL (8.5-10.1); Chloride 107 mmol/L (98-107); Creatinine, Serum 0.56 mg/dL (0.55-1.02); EST Glomerular Filtration Rate 112 mL/min (>60); Est Glom Filt Rate - Afr Amer 135 mL/min (>60); Free T3 2.6 pg/mL (2.18-3.98); Globulin 3.4 g/dL (2.2-4.2); Glucose 100 mg/dL (74-106); Potassium 4.1 mmol/L (3.5-5.1); Protein, Total 6.9 g/dL (6.4-8.2); Sodium Level 138 mmol/L (136-145); Thyroid Stim Hormone (TSH) 0.77 uIU/mL (0.358-3.74)
[2024-03-25 18:17] LABS: Lyme IgG P18 Ab Absent (.); Lyme IgG P23 Ab Absent (.); Lyme IgG P28 Ab Absent (.); Lyme IgG P30 Ab Absent (.); Lyme IgG P39 Ab Absent (.); Lyme IgG P41 Ab Absent (.); Lyme IgG P45 Ab Absent (.); Lyme IgG P58 Ab Absent (.); Lyme IgG P66 Ab Absent (.); Lyme IgG P93 Ab Absent (.); Lyme IgG WB Interpretation Negative (.); Lyme IgM P23 Ab Absent (.); Lyme IgM P39 Ab Absent (.); Lyme IgM P41 Ab Absent (.); Lyme IgM WB Interpretation Negative (.)
== END | disposition home or self-care (01) ==
LOC: BFHLAB 11:02
PROVIDERS: PCP Family Medicine; Referring Provider Family Medicine; Visit Provider Family Medicine
DX: E03.9 Hypothyroidism, unspecified (principal); M25.50 Pain in unspecified joint
CPT/HCPCS: 36415; 80053; 84439; 84443; 84481; 85025; 85652; 86140; 86617

== ENCOUNTER → 2024-04-12 | Outpatient (CLI) | payer MEDICARE, SELFPAY ==
--- NOTE | 2024-04-12 14:51 | RAD_ITS ---
EXAM: XR LUMBOSACRAL SPINE, 2 OR 3 VIEWS CLINICAL INDICATION: PAIN -- Q TECHNIQUE: Frontal and lateral views of the lumbar spine and sacrum. COMPARISON: No relevant prior studies available. FINDINGS: VERTEBRAE: The usual lordotic curvature is well-maintained. Marked disc narrowing throughout the lumbar spine. Mild levoscoliosis centered at L3. Mild spondylosis. Preserved vertebral body height. No fracture. No significant facet arthropathy. DISC SPACES: See above. GASTROINTESTINAL TRACT: Unremarkable as visualized. Included bowel gas pattern is non-obstructive. RAD/Lumbar Spine 2 or 3 Views IMPRESSION: Multilevel degenerative disc changes. Minimal scoliosis Electronically Signed: Promise Guzmán MD at 7:45 EDT ,
--- NOTE | 2024-04-12 14:51 | RAD_ITS ---
EXAM: XR RIGHT HIP WITH PELVIS , 3 VIEWS CLINICAL INDICATION: PAIN IN RIGHT LEG TECHNIQUE: Two or three views of the right hip with pelvis when performed. COMPARISON: No relevant prior studies available. FINDINGS: BONES/JOINTS: Unremarkable with the exception of loss right hip periarticular fat plane on the frontal view of the pelvis and frontal neutral view the hip which may be due to minimal inflammation or effusion. The patient is mildly rotated to the left on the frontal view of the pelvis and frontal view of the hip. Symmetric hip joint spaces. The right periarticular fat plane is visualized and appears unremarkable on the frog-leg lateral view of the right hip. No displaced fracture. No destructive or sclerotic lesions. Note that overlapping bowel shadows may however obscure fine detail. Sacroiliac joint is unremarkable. No widening of the pubic symphysis. The articular structures are unremarkable. SOFT TISSUES: Unremarkable. No soft tissue swelling or gas. RAD/HIP, UNI W/ Pelvis 2-3 Views IMPRESSION: Asymmetric periarticular fat planes around the hip may be due to patient rotation. No visible fracture or joint space asymmetry. Electronically Signed: Promise Guzmán MD at 7:39 EDT ,
[2024-04-12 17:34] LABS: Absolute Lymphocyte Count 2.98 X10^3/uL (0.83-4.51); Absolute Neutrophil Count 4.1 X10^3/uL (2.0-7.7); Basophil# 0.04 X10^3/uL; Basophil% 0.5 % (0-1); Eosinophil# 0.08 X10^3/uL; Hematocrit 41.8 % (37-47); Hemoglobin 13.3 g/dL (12.0-15.0); Lymphocyte # 2.98 X10^3/ul (0.83-4.51); Lymphocyte % 37.9 % (19-41); Mean Corp Hgb Conc 31.8 g/dL (32-36); Mean Corpuscular Hgb 28.5 pg (27.0-32.0); Mean Corpuscular Volume 89.5 fL (81-99); Mean Platelet Vol. 10.4 fl (6.2-12.0); Monocyte# 0.63 X10^3/uL; NRBC Flagged by Analyzer 0 % (0-5); Neutrophil # 4.12 X10^3/uL (2.7-7.7); Neutrophil % 52.3 % (47-70); Platelet Count 324 K/mm3 (150-450); RBC Distribution Width CV 12.6 % (11.6-14.6); RBC Distribution Width SD 41.1 fl (35.1-43.9); Red Blood Count 4.67 M/mm3 (4.2-5.4); White Blood Count 7.9 K/mm3 (4.4-11.0)
[2024-04-12 17:56] LABS: Erythrocyte Sedimentation Rate 7 mm/hr (0-30)
[2024-04-12 18:07] LABS: AST(SGOT) 17 U/L (15-37); Alanine Aminotransfer ALT/SGPT 17 U/L (13-56); Albumin, Serum 3.6 g/dL (3.2-5.0); Alkaline Phosphatase 83 U/L (45-117); Anion Gap 8 (5-15); BUN 16 mg/dL (7-18); BUN/Creat Ratio 30.4 RATIO (10-20); CRP < 2.90 mg/L (0.0-3.0); Calcium,Total 9.3 mg/dL (8.5-10.1); Chloride 102 mmol/L (98-107); Creatinine, Serum 0.53 mg/dL (0.55-1.02); EST Glomerular Filtration Rate 120 mL/min (>60); Est Glom Filt Rate - Afr Amer 146 mL/min (>60); Free T3 2.9 pg/mL (2.18-3.98); Globulin 3.5 g/dL (2.2-4.2); Glucose 93 mg/dL (74-106); Potassium 3.8 mmol/L (3.5-5.1); Protein, Total 7.1 g/dL (6.4-8.2); Sodium Level 139 mmol/L (136-145); T4 Free Direct 0.97 ng/dL (0.76-1.46); Thyroid Stim Hormone (TSH) 2.19 uIU/mL (0.358-3.74)
[2024-04-18 16:10] LABS: Lyme IgG P18 Ab Absent (.); Lyme IgG P23 Ab Absent (.); Lyme IgG P28 Ab Absent (.); Lyme IgG P30 Ab Absent (.); Lyme IgG P39 Ab Absent (.); Lyme IgG P41 Ab Present (.); Lyme IgG P45 Ab Absent (.); Lyme IgG P58 Ab Absent (.); Lyme IgG P66 Ab Absent (.); Lyme IgG P93 Ab Absent (.); Lyme IgG WB Interpretation Negative (.); Lyme IgM P23 Ab Absent (.); Lyme IgM P39 Ab Absent (.); Lyme IgM P41 Ab Absent (.); Lyme IgM WB Interpretation Negative (.)
== END | disposition home or self-care (01) ==
LOC: MTLAB 14:48
PROVIDERS: PCP Family Medicine; Referring Provider Family Medicine; Visit Provider Family Medicine
DX: E03.9 Hypothyroidism, unspecified (principal); M25.50 Pain in unspecified joint; M79.604 Pain in right leg
CPT/HCPCS: 36415; 72100; 73502; 80053; 84439; 84443; 84481; 85025; 85652; 86140; 86617

== ENCOUNTER → 2025-06-24 | Outpatient (CLI) | payer MEDICARE, SELFPAY ==
[2025-06-24 10:14] LABS: Hematocrit 40.0 % (37-47); Hemoglobin 13.2 g/dL (12.0-15.0); Immature Granulocytes Count 0.020 X10^3/uL (0.0-0.0); Mean Corp Hgb Conc 33.0 g/dL (32-36); Mean Corpuscular Volume 87.5 fL (81-99); Mean Platelet Vol. 9.9 fl (6.2-12.0); NRBC Flagged by Analyzer 0 % (0-5); Platelet Count 307 K/mm3 (150-450); RBC Distribution Width CV 12.6 % (11.6-14.6); RBC Distribution Width SD 39.9 fl (35.1-43.9); Red Blood Count 4.57 M/mm3 (4.2-5.4); White Blood Count 6.6 K/mm3 (4.4-11.0)
[2025-06-24 11:00] LABS: AST(SGOT) 21 U/L (<=31); Alanine Aminotransfer ALT/SGPT 10 U/L (<=34); Albumin, Serum 4.1 g/dL (3.4-4.8); Alkaline Phosphatase 81 U/L (35-104); Anion Gap 12 (5-15); BUN 17 mg/dL (4-19); BUN/Creat Ratio 33.9 RATIO (10-20); Calcium,Total 9.4 mg/dL (7.6-11.0); Carbon Dioxide 24.3 mmol/L (21.0-32.0); Chloride 102 mmol/L (98-108); Free T3 3.5 pg/mL (2.18-3.98); Globulin 2.7 g/dL (2.2-4.2); Glucose 111 mg/dL (70-99); Potassium 4.2 mmol/L (3.3-5.1); Pro- Brain NATRIURETIC PEPTIDE 334 pg/mL (<=1800)
[2025-06-24 11:24] LABS: CRP < 3.00 mg/L (0.0-3.0)
== END | disposition home or self-care (01) ==
LOC: MTLAB 08:55
PROVIDERS: PCP Family Medicine; Referring Provider Family Medicine; Visit Provider Family Medicine
DX: E03.9 Hypothyroidism, unspecified (principal); I50.32 Chronic diastolic (congestive) heart failure; M25.50 Pain in unspecified joint
CPT/HCPCS: 36415; 80053; 83880; 84439; 84443; 84481; 85025; 85652; 86140

== ENCOUNTER → 2025-07-04 | Outpatient (CLI) | payer MEDICARE, SELFPAY ==
--- NOTE | 2025-07-04 10:04 | ECHOD_ITS ---
Reason For Study Reason For Study: SOB, MURMUR Procedure This was a 2D Doppler, Color Flow transthoracic echocardiogram. The study was technically difficult. Due to suboptimal parasternal imaging windows. Exam performed in department. Left Ventricle Normal LV size. Left ventricular systolic function is normal. The left ventricular ejection fraction is 65 %. No regional wall motion abnormalities noted. Right Ventricle Normal RV size. Normal systolic function. Atria Normal left atrium. Normal right atrium. Mitral Valve There is mild to moderate mitral annular calcification. Trivial mitral valve insufficiency. Tricuspid Valve Normal tricuspid valve. Mild (1+) tricuspid valve insufficiency. Pulmonary artery systolic pressure is 24 mmHg. Aortic Valve Trisinus/trileaflet aortic valve. Mild focal aortic valve thickening. Peak aortic valve gradient 27 mmHg. Mean aortic valve gradient 17 mmHg. Pulmonic Valve Normal pulmonic valve. Great Vessels Normal aortic root. The pulmonary artery is normal size. Inferior vena cava collapse with respiration. Pericardium/Pleural No pericardial effusion. MMode/2D Measurements & Calculations LVIDd: 3.9 cm IVSd: 1.0 cm LAV(MOD- bp): 54.2 ml LVIDs: 2.4 cm LVPWd: 1.0 cm LAV(MOD- bp) Indexed: 32.9 ml/m2 FS: 38.3 % LAV(MOD- sp2): 47.4 ml LAV(MOD- sp4): 57.2 ml SV(MOD- sp4): 35.7 ml LVAd ap4: 21.4 cm2 LVAd ap2: 22.1 cm2 LVLd ap4: 6.9 cm LVLd ap2: 6.7 cm SI(MOD- sp4): 21.7 ml/m2 EDV(MOD-sp4): 55.4 ml EDV(MOD-sp2): 60.6 ml EDV(sp4-el): 56.5 ml EDV(sp2-el): 61.6 ml LVAs ap4: 11.2 cm2 LVAs ap2: 10.9 cm2 LVLs ap4: 5.5 cm LVLs ap2: 5.3 cm ESV(MOD-sp4): 19.6 ml ESV(MOD-sp2): 20.4 ml ESV(sp4-el): 19.6 ml ESV(sp2-el): 18.9 ml EF(MOD-sp4): 64.5 % EF(MOD-sp2): 66.3 % EF(sp4-el): 65.3 % SV(MOD-sp2): 40.2 ml SV(sp4-el): 36.9 ml LA A4 area: 18.7 cm2 SI(MOD-sp2): 24.4 ml/m2 LA dimension(2D): 3.2 cm TAPSE: 2.3 cm RA A4 area: 10.5 cm2 Time Measurements MV dec time: 0.23 sec Doppler Measurements & Calculations MV E max mickey: 95.3 cm/sec Lat Peak E' Mickey: 10.3 cm/sec Med Peak E' Mickey: 7.3 cm/sec MV A max mickey: 103.0 cm/sec E/E' lat: 9.2 E/E' med: 13.1 MV E/A: 0.93 MV V2 max: 115.8 cm/sec MV P1/2t max mickey: 100.9 cm/sec Ao V2 max: 261.5 cm/sec MV max P.4 mmHg MV P1/2t: 63.7 msec Ao max P.4 mmHg MV V2 mean: 70.6 cm/sec MV dec slope: 464.4 cm/sec2 Ao V2 mean: 197.0 cm/sec MV mean P.2 mmHg Ao mean P.2 mmHg MV V2 VTI: 25.5 cm MVA(P1/2t): 3.5 cm2 Ao V2 VTI: 59.7 cm AV (velocity ratio): 0.40 LV V1 max: 102.8 cm/sec MR max mickey: 553.3 cm/sec PA V2 max: 93.6 cm/sec LV V1 max P.2 mmHg MR max P.4 mmHg PA V2 mean: 59.2 cm/sec LV V1 mean P.4 mmHg MR mean mickey: 457.9 cm/sec PA V2 VTI: 16.3 cm LV V1 mean: 72.2 cm/sec MR mean P.9 mmHg LV V1 VTI: 23.8 cm MR VTI: 164.2 cm TR max mickey: 224.9 cm/sec TR max P.3 mmHg ECHO/Echo Complete Interpretation Summary Normal LV size. Left ventricular systolic function is normal. The left ventricular ejection fraction is 65 %. Pulmonary artery systolic pressure is 24 mmHg. Ordering Physician: Rosalina Valentine Referring Physician: Rosalina Valentine Performed By: Isabel Griffiths, STUART, RVT
== END | disposition home or self-care (01) ==
LOC: CVS 10:04
PROVIDERS: PCP Family Medicine; Referring Provider Family Medicine; Visit Provider Family Medicine
DX: R06.02 Shortness of breath (principal); R01.1 Cardiac murmur, unspecified
CPT/HCPCS: 93306

== ENCOUNTER → 2025-07-17 | Outpatient (CLI) | payer MEDICARE, SELFPAY ==
[2025-07-17 13:08] LABS: Cholesterol 343 mg/dL (<=200); Ferritin 181 ng/mL (22-378); Low Density Lipoprotein Calc. 248 mg/dL; Triglycerides 167 mg/dL; Very Low Density Lipoprotein 33 mg/dL (5-40); Vitamin B12 790 pg/mL (180-914); Vitamin D,25 Hydroxy 102.0 ng/mL (30-100); cholesterol:hdl ratio screen 5.56
[2025-07-17 14:05] LABS: FOLATES,SERUM (FOLIC ACID) > 40.00 ng/mL (4.60-34.80)
[2025-07-17 14:18] LABS: Iron 88 ug/dL (50-170)
== END | disposition home or self-care (01) ==
LOC: BFHLAB 08:43
PROVIDERS: PCP Family Medicine; Visit Provider Family Medicine
DX: Z15.89 Genetic susceptibility to other disease (principal); E55.9 Vitamin D deficiency, unspecified; E78.5 Hyperlipidemia, unspecified; E53.8 Deficiency of other specified B group vitamins; R53.83 Other fatigue; R06.00 Dyspnea, unspecified
CPT/HCPCS: 36415; 80061; 81291; 82306; 82607; 82728; 82746; 83540

== ENCOUNTER → 2025-07-18 | Outpatient (CLI) | payer MEDICARE, SELFPAY ==
--- NOTE | 2025-07-18 10:10 | VDLE_ITS ---
Reason For Study Reason For Study: Pain and Edema BLE RIGHT LEFT GSV is normal. CFV is compressible, spontaneous, phasic, competent, CFV is compressible, spontaneous, phasic, competent and demonstrates normal augmentation. and demonstrates normal augmentation. FV is compressible, spontaneous, phasic, competent FV is compressible, spontaneous, phasic, competent and demonstrates normal augmentation. and demonstrates normal augmentation. POP V is compressible, spontaneous, phasic, competent POP V is compressible, spontaneous, phasic, competent and demonstrates normal augmentation. and demonstrates normal augmentation. T/P Trunk is compressible. T/P Trunk is compressible. PTV is compressible. PTV is compressible. LT PerV is compressible. RT PerV is compressible. SFJ is competent and measures 0.44cm x 0.48 cm. SFJ is competent and measures 0.41cm x 0.41 cm. GSV proximal thigh measures 0.27cm x 0.24 cm. GSV proximal thigh measures 0.31cm x 0.34 cm. GSV at knee measures 0.28cm x 0.27 cm. GSV at knee measures 0.25cm x 0.24 cm. GSV above knee is competent. GSV is competent throughout. GSV below knee is INCOMPETENT for greater than 0.5 SSV mid calf is competent and measures 0.19cm x 0.19 seconds. cm. SSV mid calf is competent and measures 0.23cm x 0.23 Procedure cm. This is a venous duplex using B-mode, color flow and Hypoechoic, non vascular structure noted Lt Pop Fossa spectral Doppler. measuring 0.67cm x 2.08cm. Exam performed in department. Patient was scanned in reverse Trendelenburg position during reflux assessment. VL/Venous Duplex US - Juan Manuel Extrem Interpretation Summary Deep veins of the lower extremities are bilaterally patent and compressible seg mentally. There is no evidence of deep vein thrombosis on either side. Valvular competence appears intact within the p roximal deep venous systems bilaterally. The great saphenous veins appear bilaterally patent and compressible segmentall y. Sapheno-femoral junctions are bilaterally competent . The right great saphenous vein appears segmentally comp etent. The left great saphenous vein appears competent above the knee. The left great saphenous vein appears incompe tent below the knee. Small saphenous veins are patent and competent bilaterally. A non-vascular, hypoechoic structur e is noted in the left popliteal space, measuring 0.67 cm x 2.08 cm. This probably represents a popliteal cyst. Clinica l correlation is advised. Ordering Physician: Mikey Samson Referring Physician: Rosalina Valentine Performed By: Lilo Jimenez, STUART, RVT
== END | disposition home or self-care (01) ==
PROVIDERS: PCP Family Medicine; Referring Provider Surgery Plastic and Reconstructive Surgery; Visit Provider Surgery Plastic and Reconstructive Surgery
DX: M79.604 Pain in right leg (principal); I70.92 Chronic total occlusion of artery of the extremities; M79.605 Pain in left leg; R60.0 Localized edema
CPT/HCPCS: 93970

== ENCOUNTER → 2025-07-24 | Outpatient (CLI) | payer MEDICARE, SELFPAY | END | disposition home or self-care (01) | LOC: PSN 08:51 | PROVIDERS: PCP Family Medicine; Referring Provider Family Medicine; Visit Provider Family Medicine | DX: R06.09 Other forms of dyspnea (principal) | CPT/HCPCS: 94060; 94726; 94729 ==

== ENCOUNTER → 2025-09-05 | Outpatient (CLI) | payer MEDICARE, SELFPAY ==
[2025-09-05 11:50] LABS: Hematocrit 40.8 % (37-47); Hemoglobin 13.5 g/dL (12.0-15.0); Immature Granulocytes Count 0.010 X10^3/uL (0.0-0.0); Mean Corp Hgb Conc 33.1 g/dL (32-36); Mean Corpuscular Volume 86.8 fL (81-99); Mean Platelet Vol. 9.7 fl (6.2-12.0); NRBC Flagged by Analyzer 0 % (0-5); Platelet Count 345 K/mm3 (150-450); RBC Distribution Width CV 12.9 % (11.6-14.6); RBC Distribution Width SD 41.0 fl (35.1-43.9); Red Blood Count 4.70 M/mm3 (4.2-5.4); White Blood Count 7.0 K/mm3 (4.4-11.0)
[2025-09-05 12:22] LABS: Anion Gap 11 (5-15); BUN 15 mg/dL (4-19); BUN/Creat Ratio 28.5 RATIO (10-20); Calcium,Total 9.6 mg/dL (7.6-11.0); Carbon Dioxide 24.7 mmol/L (21.0-32.0); Chloride 101 mmol/L (98-108); Glucose 107 mg/dL (70-99); Potassium 4.5 mmol/L (3.3-5.1)
== END | disposition home or self-care (01) ==
LOC: LAB 10:31
PROVIDERS: PCP Family Medicine; Referring Provider Internal Medicine Cardiovascular Disease; Visit Provider Internal Medicine Cardiovascular Disease
DX: I25.10 Atherosclerotic heart disease of native coronary artery without angina pectoris (principal)
CPT/HCPCS: 36415; 80048; 85025

== ENCOUNTER → 2025-09-15 | Outpatient (CLI) | payer MEDICARE, SELFPAY ==
--- NOTE | 2025-09-15 14:08 | CDU_ITS ---
Reason For Study Reason For Study: Bruit Rt. Velocities/BP Lt. Velocities/BP Prox CCA 90/15 cm/sec. Prox CCA 88/17 cm/sec. Mid CCA 91/15 cm/sec. Mid CCA 83/14 cm/sec. Dist CCA 82/16 cm/sec. Dist CCA 69/16 cm/sec. Prox ICA 74/24 cm/sec. Prox ICA 137/50 cm/sec. Mid ICA 88/27 cm/sec. Mid ICA 137/40 cm/sec. Dist ICA 83/25 cm/sec. Dist ICA 70/19 cm/sec. Rt. ICA/CCA = 1.0. Lt. ICA/CCA = 1.6. Prox ECA 243/15 cm/sec. Prox ECA 107/12 cm/sec. Rt. Vert. 29/4 cm/sec. Lt. Vert. 52/19 cm/sec. Right Extracranial There is heterogeneous, irregular atherosclerotic plaque noted in the right common carotid artery. There is heterogeneous, irregular atherosclerotic plaque noted in the right internal carotid artery. There is heterogeneous, irregular atherosclerotic plaque noted in the right external carotid artery. Antegrade flow is noted in the right vertebral artery. Left Extracranial There is heterogeneous, irregular atherosclerotic plaque noted in the left common carotid artery. There is heterogeneous, irregular atherosclerotic plaque noted in the left internal carotid artery. There is intimal thickening but no significant atherosclerotic plaque noted in the left external carotid artery. Antegrade flow is noted in the left vertebral artery. Heterogeneous, vascularized structure noted Lt Thyroid measuring 1.65cm x 0.94cm. Procedure Carotid Duplex [id number]. This is a Carotid Duplex examination using B-mode, color flow and specral Doppler. Exam performed in department. VL/Carotid Duplex Ultrasound Interpretation Summary Mild (<50%) stenosis right extracranial internal carotid. Moderate (50-69%) stenosis left extracranial internal carotid. Patent and antegrade vertebrals bilaterally. Heterogeneous, vascularized structure noted left thyroid measuring 1.65cm x 0.9 4cm. Ordering Physician: Christo, [place] Referring Physician: Rosalina Valentine Performed By: Lilo Jimenez, STUART, RVT
--- OUTSIDE RECORDS SUMMARY | 2025-09-15 18:07 | XMS RPT_ITS | CCD ---
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 Rosalina Valentine DO Primary Care Provider 1([facility])[phone] Arabella Samano Attending Provider 1([facility])[phone] Leah GRAY-CLilo Referring Provider 1([facility])[phone] Dr. Rosalina Valentine DO Attending Provider 1([facility])[phone] Rosalina Valentine DO Referring Provider 1([facility])[phone] Aguila Villafuerte MD Attending Provider 1([facility])[phone] Mikey Samson MD Attending Provider 1([facility])[phone] Dr. Rosalina Valentine DO Primary Care Physician Arabella Samano Attending Physician 1([facility])[phone] Rosalina Valentine DO Attending Physician 1([facility])[phone] Aguila Villafuerte MD Attending Physician 1([facility])[phone] Dr. Mikey Samson MD Attending Physician 1([facility])[phone] Dr. Mikey Samson MD Referring Provider 1([facility])[phone] Dr. Rahul Marie MD Attending Physician Nirmalys, Rosalina Primary Care Unavailable Mikey Samson Attending Unavailable Mikey Samson Referring Unavailable Malys, Rosalina Primary Care Unavailable Malys, Rosalina Attending Unavailable Malys, Rosalina Referring Unavailable ChristoAguila guardado Referring Unavailable Christo [place] Attending Unavailable Malys, Rosalina Primary Care Unavailable Malys, Rosalina Attending Unavailable Malys, Rosalina Primary Care Unavailable Christo, [place] Referring Unavailable Christo, [place] Attending Unavailable Malys, Rosalina Primary Care Unavailable Christo, Aguila Referring Unavailable Christo, Aguila Attending Unavailable Malys, Rosalina Primary Care Unavailable Arabella Good Attending Unavailable Malys, Rosalina Primary Care Unavailable Leah, Lilo Referring Unavailable Malys, Rosalina Primary Care Unavailable Siska, Mikey Attending Unavailable Malys, Rosalina Referring Unavailable Malys, Rosalina Primary Care Unavailable Christo, Aguila Attending Unavailable Malys, Rosalina Primary Care Unavailable Siska, Mikey Attending Unavailable Malys, Rosalina Referring Unavailable Christo, Aguila Attending Unavailable Malys, Rosalina Referring Unavailable Malys, Rosalina Primary Care Unavailable Malys, Rosalina Primary Care Unavailable Malys, Rosalina Attending Unavailable Malys, Rosalina Referring Unavailable Malys, Rosalina Primary Care Unavailable Malys, Rosalina Attending Unavailable Malys, Rosalina Referring Unavailable Malys, Rosalina Primary Care Unavailable Malys, Rosalina Attending Unavailable Allergies Allergy Classification Reported Allergen(s) Allergy Type Date of Onset Reaction(s) Facility (1 source) Oixreme-Nip-Egj Reductase Inhibitor Drug allergy (disorder) 09-08-2025 [facility] Repository Medications Current Medications Medication Drug Class(es) Dates Sig (Normalized) Sig (Original) cardio miracle (8 sources) Start: 05-02-2025 cardio miracle Active PO TWICE A DAY May 02, 2025 12:00am Drink Complies with drug therapy Start: 05-02-2025 cardio miracle Discontinued PO TWICE A DAY May 02, 2025 12:00am Drink estradiol 0.1 mg/ml vaginal cream (8 sources) Estrogen Start: 05-02-2025 Estradiol 0.01 % (0.1 mg/gram) cream Active 1 g VAGINAL EVERY WEEK May 02, 2025 12:00am Complies with drug therapy Completed/Discontinued Medications Medication Drug Class(es) Dates Sig (Normalized) Sig (Original) Estradiol-Progeste shayan (8 sources) Progesterone, Estrogen Start: 05-01-2025 End: 05-02-2025 Estradiol-Progestero ne 0.5-100 mg capsule Discontinued 1 NMA PO daily May 01, 2025 12:00am May 02, 2025 9:34am Problems Problem Classification Problem Date Documented Date Episodic/Chronic Coronary atherosclerosis and other heart disease (1 source) Atherosclerotic heart disease of [place] coronary artery without angina pectoris; Translations: [Atherosclerotic heart disease of [place] coronary artery without angina pectoris] Onset: 09-05-2025 Chronic Disorders of lipid metabolism (10 sources) Hyperlipidemia; Translations: [Hyperlipidemia, unspecified] Onset: 08-12-2025 05-01-2025 Chronic Essential hypertension (8 sources) Hypertensive disorder; Translations: [Essential (primary) hypertension] 05-01-2025 Chronic Malaise and fatigue (1 source) Other fatigue; Translations: [Other fatigue] Onset: 09-05-2025 Episodic Occlusion or stenosis of precerebral arteries (8 sources) Carotid artery stenosis; Translations: [Occlusion and stenosis of unspecified carotid artery] 05-01-2025 Chronic Osteoarthritis (8 sources) Arthritis; Translations: [Unspecified osteoarthritis, unspecified site] 05-01-2025 Chronic Other circulatory disease (1 source) Other specified symptoms and signs involving the circulatory and respiratory systems; Translations: [Other specified symptoms and signs involving the circulatory and respiratory systems] Onset: 09-08-2025 Episodic Other connective tissue disease (8 sources) Fibromyalgia; Translations: [Fibromyalgia] 05-01-2025 Episodic Other connective tissue disease (7 sources) Pain in lower limb; Translations: [Pain in right leg] 05-01-2025 Episodic Other connective tissue disease (12 sources) Pain in bilateral legs; Translations: [Pain in right leg] 05-01-2025 Episodic Other connective tissue disease (1 source) Pain in right leg; Translations: [Pain in right leg] Onset: 08-01-2025 Episodic Other lower respiratory disease (1 source) Other forms of dyspnea; Translations: [Other forms of dyspnea] Onset: 08-06-2025 Episodic Other lower respiratory disease (1 source) Shortness of breath; Translations: [Shortness of breath] Onset: 07-11-2025 Episodic Other screening for suspected conditions (not mental disorders or infectious disease) (1 source) Abnormal findings on diagnostic imaging of heart and coronary circulation; Translations: [Abnormal findings on diagnostic imaging of heart and coronary circulation] Onset: 09-05-2025 Episodic Residual codes; unclassified (19 sources) Edema of lower extremity; Translations: [Localized edema] 05-06-2025 Episodic Residual codes; unclassified (4 sources) Lipedema Episodic Residual codes; unclassified (8 sources) Localized edema; Translations: [Lipedema of lower extremity] 07-15-2025 Episodic Residual codes; unclassified (1 source) Genetic susceptibility to other disease; Translations: [Genetic susceptibility to other disease] Onset: 07-29-2025 Episodic Thyroid disorders (9 sources) Hypothyroidism; Translations: [Hypothyroidism, unspecified] Onset: 06-30-2025 05-01-2025 Chronic Unclassified (3 sources) Lipedema Unclassified (10 sources) R60.9 - Edema, unspecified Varicose veins of lower extremity (18 sources) Bilateral spider veins of lower limbs; Translations: [Asymptomatic varicose veins of bilateral lower extremities] 05-06-2025 Episodic Results Test Name Value Interpretation Reference Range Facility Basic Metabolic Profile (BMP )on 09-05-2025 BUN/CRE 28.5 RATIO High 08-25 [facility] Comment on above: Performed By: #### L 500.2500, L100.0100 ####[facility] [address] [place], [address] Calcium [Mass/Vol] 9.6 mg/dL Normal 7.6-11.0 [facility] Comment on above: Performed By: #### L 500.2500, L100.0100 ####[facility] [address] [place], [address] Chloride [Moles/Vol] 101 mmol/L Normal 98-108 [facility] Comment on above: Performed By: #### L 500.2500, L100.0100 ####[facility] [address] [place], [address] CO2 [Moles/Vol] 24.7 mmol/L Normal 21.0-32.0 [facility] Comment on above: Performed By: #### L 500.2500, L100.0100 ####[facility] [address] [place], [address] Creatinine [Mass/Vol] 0.51 mg/dL Low 0.70-1.20 [facility] Comment on above: Performed By: #### L 500.2500, L100.0100 ####[facility] [address] [place], [address] GAP 11 Normal 5-15 [facility] Comment on above: Performed By: #### L 500.2500, L100.0100 ####[facility] [address] [place], [address] GFR/1.73 sq M.predicted among non-blacks MDRD (S/P/Bld) [Vol rate/Area] 97 mL/min/{1.73_m2} Normal >60 [facility] Comment on above: Result Comment: mL/m in/1.73m2 CKD-EPI Creatinine Equation (2020) Performed By: #### L 500.2500, L100.0100 ####[facility] [address] [place], [address] Glucose [Mass/Vol] 107 mg/dL High 70-99 [facility] Comment on above: Performed By: #### L 500.2500, L100.0100 ####[facility] [address] [place], [address] Potassium [Moles/Vol] 4.5 mmol/L Normal 3.3-5.1 [facility] Comment on above: Performed By: #### L 500.2500, L100.0100 ####[facility] [address] [place], [address] Sodium [Moles/Vol] 137 mmol/L Normal 133-145 [facility] Comment on above: Performed By: #### L 500.2500, L100.0100 ####[facility] [address] [place], [address] Urea nitrogen [Mass/Vol] 15 mg/dL Normal 4-19 [facility] Comment on above: Performed By: #### L 500.2500, L100.0100 ####[facility] [address] [place], [address] CBC W/Diff, Automatedon 10-3 -2024 Absolute Lymph 2.63 X10 3/uL Normal 0.83-4.51 [facility] Comment on above: Performed By: #### L 500.2500, L100.0100 ####[facility] [address] [place], [address] Absolute Neut 3.6 X10 3/uL Normal 2.0-7.7 [facility] Comment on above: Performed By: #### L 500.2500, L100.0100 ####[facility] [address] [place], [address] Basophils/100 WBC (Bld) 0.6 % Normal 0-1 [facility] Comment on above: Performed By: #### L 500.2500, L100.0100 ####[facility] [address] [place], [address] Eosinophils/100 WBC (Bld) 2.3 % Normal 0-5 [facility] Comment on above: Performed By: #### L 500.2500, L100.0100 ####[facility] [address] [place], [address] Erythrocyte distribution width (RBC) [Ratio] 12.9 % Normal 11.6-14.6 [facility] Comment on above: Performed By: #### L 500.2500, L100.0100 ####[facility] [address] [place], [address] Hematocrit (Bld) [Volume fraction] 40.8 % Normal 37-47 [facility] Comment on above: Performed By: #### L 500.2500, L100.0100 ####[facility] [address] [place], [address] Hemoglobin (Bld) [Mass/Vol] 13.5 g/dL Normal 12.0-15.0 [facility] Comment on above: Performed By: #### L 500.2500, L100.0100 ####[facility] [address] [place], [address] IG% 0.100 Normal 0.0-0.9 [facility] Comment on above: Result Comment: IG% - Immature Granulocytes (promyelocytes, myelocytes and metamyelocytes) > 1% indicates that a LEFT SHIFT is Present. Performed By: #### L 500.2500, L100.0100 ####[facility] [address] [place], [address] Lymphocytes/100 WBC (Bld) 37.7 % Normal 19-41 [facility] Comment on above: Performed By: #### L 500.2500, L100.0100 ####[facility] [address] [place], [address] MCH (RBC) [Entitic mass] 28.7 pg Normal 27.0-32.0 [facility] Comment on above: Performed By: #### L 500.2500, L100.0100 ####[facility] [address] [place], [address] MCHC (RBC) [Mass/Vol] 33.1 g/dL Normal 32-36 [facility] Comment on above: Performed By: #### L 500.2500, L100.0100 ####[facility] [address] [place], [address] MCV (RBC) [Entitic vol] 86.8 fL Normal 81-99 [facility] Comment on above: Performed By: #### L 500.2500, L100.0100 ####[facility] [address] [place], [address] Monocytes/100 WBC (Bld) 8.5 % Normal 0-10 [facility] Comment on above: Performed By: #### L 500.2500, L100.0100 ####[facility] [address] [place], [address] Neutrophils/100 WBC (Bld) 50.8 % Normal 47-70 [facility] Comment on above: Performed By: #### L 500.2500, L100.0100 ####[facility] [address] [place], [address] Nucleated RBC (Bld) [#/Vol] 0 10*3/uL Normal 0-5 [facility] Comment on above: Performed By: #### L 500.2500, L100.0100 ####[facility] [address] [place], [address] Platelet mean volume (Bld) [Entitic vol] 9.7 fL Normal 6.2-12.0 [facility] Comment on above: Performed By: #### L 500.2500, L100.0100 ####[facility] [address] [place], [address] Platelets (Bld) [#/Vol] 345 10*3/uL Normal 150-450 [facility] Comment on above: Performed By: #### L 500.2500, L100.0100 ####[facility] [address] [place], [address] RBC (Bld) [#/Vol] 4.70 10*6/uL Normal 4.2-5.4 [facility] Comment on above: Performed By: #### L 500.2500, L100.0100 ####[facility] [address] [place], [address] RDW SD 41.0 fl Normal 35.1-43.9 [facility] Comment on above: Performed By: #### L 500.2500, L100.0100 ####[facility] [address] [place], [address] WBC (Bld) [#/Vol] 7.0 10*3/uL Normal 4.4-11.0 [facility] Comment on above: Performed By: #### L 500.2500, L100.0100 ####[facility] [address] [place], [address] Cardiology Visit Reporton Cardiology Visit Report [facility] [place] [address] [place] [address] OFFICE VISIT Date of Service: 09/05/25 MR#: [id number] Acct: [id number] Name: JACQUI MAS Rep #: [id number] : 1950 Provider: Dr. Aguila Villafuerte MD Age/Sex: 75/F Location: [facility] Status: Signed HPI HPI History of Present Illness Details: The patient is a 75-year-old female with a history of hypercholesterolemia, hypertension, and aortic valve calcification, presenting for evaluation of dyspnea and chest discomfort. The patient reports experiencing dyspnea and significant discomfort in her arm and chest, which have worsened over the years. She has been told by various physicians that her symptoms were due to stress or anxiety, with one physician suggesting this approximately three years ago. She denies any history of depression. She has not taken nitroglycerin. She recalls a prior echocardiogram revealing a heart murmur and mild calcification, but was advised that her heart was otherwise healthy. She was encouraged to continue exercising despite experiencing dyspnea, chest pain, and nausea during physical activity. A subsequent CT scan revealed significant findings, prompting her physician to advise against strenuous activity. He does have shortness of breath with minimal activity and chest tightness described as an achiness in the left chest and shoulder which sometimes last a few hours. She is also noted increased fatigue and occasional nausea. She does not have any resting discomfort per se but has reduced her activity level because of her discomfort. Her physical exam is significant for clear lung caruso soft systolic murmur and bilateral carotid bruit. Electrocardiogram demonstrates sinus rhythm with a rate of 84 bpm premature atrial complexes and no acute changes. She has a history of hypertension but discontinued her antihypertensive medication after losing 30 pounds, as her blood pressure readings were reportedly low. She notes that her blood pressure can vary, with a recent reading of 158/86 mmHg. She denies a history of diabetes mellitus. She has a history of hypercholesterolemia but discontinued statin therapy due to severe leg pain. She attempted to manage her cholesterol with red yeast rice but experienced dyspnea and chest pain, which she attributes to the presence of vitamin B in the supplement. She has been advised to take methylated B vitamins due to an MTHFR gene mutation. She reports intermittent leg pain but has been largely inactive, describing herself as a couch potato" due to her cardiac concerns. She plans to resume physical activity once her cardiac issues are addressed. 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 She denies any history of tobacco use. She has a family history of CAD and multiple cerebrovascular accidents in her father. She is a , with her having from pancreatic cancer. 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: No Accompanied by: Daughter Is patient in pain?: No Allergies No Known Allergies Allergy (Verified 09/05/25 09:16) Medications ???Medication ???Instructions ???Recorded ???Confirmed ???Type estradiol 0.01% (0.1 mg/gram) 1 g vaginal QWEEK 05/02/25 5 History vaginal cream Morning Start PO 09/02/25 09/05/25 History Thyroid Zone PO 09/02/25 09/05/25 History cholecalciferol (vitamin D3) 50 50 mcg PO QDAY 09/02/25 09/05/25 H istory mcg (2,000 unit) capsule aspirin 81 mg tablet,delayed 81 mg PO QDAY #90 tabs 09/05/25 Rx release (Adult Low Dose Aspirin) ferrous sulfate 325 mg (65 mg 325 mg PO QDAY 09/05/25 09/05/25 H istory iron) tablet metoprolol succinate 50 mg 50 mg PO QDAY #90 tabs 09/05/25 Rx tablet,extended release 24 hr (Toprol XL) vitamin B complex 1 tab PO QDAY 09/05/25 09/05/25 Hi story Ejection fraction %: 65 Have you fallen in the past year?: No PFSH Medical History Fatigue MTHFR gene mutation Shortness of breath Abnormal findings on diagnostic imaging of heart and coronary circulation 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 Normal [facility] Coronary Angiography CTon Coronary Angiography CT [facility] Imaging Services [address] [place] [place] [address] 08/12/25 1722 MR#: [id number] Acct: [id number] Name: JACQUI MAS MOLLY Rep #: [id number] : 1950 75 From: Aguila Villafuerte MD PCP: Dr. Rosalina Valentine, DO Status:REG REF Y Location: CT Calcium Scoring Date of Study:: 08/12/25 Indications Indications: HLD Coronary Calcium Scoring: High-resolution Computed Tomographic imaging of the chest was performed on [08/12/25 ], with particular attention paid to the coronary arteries. Images from the examination were analyzed for the presence and extent of coronary artery calcification , using coronary calcium quantification software. The patient tolerated the procedure well and there were no complications. The results of the coronary calcification analysis are provided below. Findings Coronary Artery Left Main (LM): 143 Left Anterior Descending (LAD): 615 Left Circumflex (LCX): 311 Right Coronary Artery (RCA): 1,650 Total Agatston Score: 2,719 Percentile Rankin Calcium Scoring Interpretation: Different methods to categorize the overall amount of coronary plaque. Overall amount CAC SIS Visual of coronary plaque P1 Mild -100 <2 1-2 vessels with mild amount of plaque P2 Moderate 101-300 3-4 1-2 vessels with moderate amount, 3 vessels with mild amount of plaque P3 Severe 301-999 5-7 3 vessels with moderate amount, 1 vessel with severe amount of plaque P4 Extensive >1000 >8 2-3 vessels with severe amount of plaque Calcium Score: Extensive: 2-3 vessels w/severe amount of plaque Conclusion: Extensive 3 vessel plaque disease noted. 08/12/25 1733 Date Aguila Villafuerte MD Cosigner Signature (if applicable): Date CC: Dr. Aguila Villafuerte MD; Dr. Rosalina Valentine DO Signed Normal [facility] Limited Chest CT Cardiac Onl yon 08-12-[address] Cardiac Only [facility] Imaging Services [address] [place] [id number] Cardiac Only MR#: [id number] Acct: [id number] Name: JACQUI MAS Rep #: [id number] : 1950 F 75 From: Jorge Kirkpatrick PCP: Dr. Rosalina Valentine DO Status: REG REF Study: Limited Chest CT Cardiac Only Date of Exam: Exam# [id number] Ordering Dr: Rosalina Valentine DO PROCEDURE: LIMITED CHEST CT CARDIAC ONLY 08/12/2025 REASON FOR EXAM: HYPERLIPIDEMIA TECHNIQUE: Procedure Code: [id number] Modality: CT Procedure: LIMITED CHEST CT CARDIAC ONLY One or more dose reduction techniques were used (e.g., Automated exposure control, adjustment of the mA and/or kV according to patient size, use of iterative reconstruction technique). RADIATION DOSE SUMMARY: CTDlvol: 12.19 mGy DLP: 219.[address]/Limited Chest CT Cardiac Only IMPRESSION: Prominent aortic calcification is seen. Significant calcification of the aortic valve is also noted. Limited imaging of the lungs demonstrates no acute process. No pleural effusion or pneumothorax is seen in visualized areas. No adenopathy is noted. The visualized upper abdomen demonstrates no significant abnormality. Reading Location: [facility] CC: Dr. 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 Mikey Samson MD Age/Sex: 75/F Location: [facility] Status: Signed Intake Vital Signs 3 07/14/25 16:03 08/07/25 15:27 Height 5 ft 2 in BP 136/84 H Blood Pressure Location Rt brachial Position Sitting Respiration 18 Pulse 89 Pulse Source Monitor Pulse Oximetry (%) 96 Oxygen Delivery Method room air Intake Visit Reasons: FOLLOW UP Chief Complaint: edema lower extremities Is patient in pain?: No Allergies No Known Allergies Allergy (Verified 08/07/25 15:26) Medications 3 ???Medication ???Instructions ???Recorded ???Confirmed ???Type cardio miracle PO BID 05/02/25 08/07/25 History estradiol 0.01% (0.1 mg/gram) 1 g vaginal QWEEK 05/02/25 5 History vaginal cream Have you fallen in the past year?: No PFSH Medical History Leg pain, bilateral Carotid artery stenosis Hypothyroidism Hyperlipidemia Hypertension Fibromyalgia Arthritis History of Clostridioides difficile infection Surgical History H/O cataract extraction ( 11/2024) H/O: hysterectomy ( 1997) Family History Father CVA (cerebral vascular accident) Hypertension Sister Cancer Social History household members: spouse number of children: 4 Smoking Status: Former smoker how long ago did patient quit smokin years alcohol intake: current Alcohol type: wine details: ON OCCASION substance use type: does not use additional social history: pt denies edibles, denies marijuana use, denies aspirin and ibuprofen use, denies smoking. pt denies any history of blood clots. HPI FOLLOW UP Details: HPI 2024: The patient is a 75-year-old female presenting with lower extremity edema and lipedema. She reports chronic edema in her lower extremities, exacerbated by prolonged standing, which has been present since her second . The swelling is painful and improves with leg elevation. The patient has lipedema, with fat deposits in her legs causing discomfort, especially noticeable after losing 30 pounds. She has been advised to use compression stockings but finds them uncomfortable in warm weather. She also experiences chest pain and dyspnea on exertion, limiting her physical activity. A cardiac evaluation, including a heart sonogram, was normal, with further tests pending. ROS: - Cardiovascular: Reports chest pain and dyspnea on exertion. Denies palpitations or syncope. - Musculoskeletal: Reports lower extremity edema and pain with prolonged standing. Denies joint pain or stiffness. Attestation: Documentation on this patient encounter was supported using ambient scribe technology/ voice AI technology. The patient consented to recording for the purpose of documenting the encounter. Provider reviewed content of the generated note prior to signature. CURRENT ENCOUNTER, 07 August 2025: The patient is a 75-year-old female presenting with concerns about leg swelling and cosmetic appearance. She reports noticing swelling in her legs since her second , which has persisted over time. The swelling is associated with lipedema, characterized by abnormal fat distribution in the lower extremities, but without significant pain. The patient also has a history of a popliteal cyst on the left leg, which was identified during a previous examination. She experiences discomfort in the area, particularly when pressure is applied, although it is not excruciating. Additionally, the patient has been diagnosed with an MTHFR mutation, which increases her risk for blood clots. She has recently adjusted her vitamin B intake to methylated forms, which has improved her overall feeling of well-being. The patient has not experienced any blood clots to date. ros: - Cardiovascular: Denies chest pain, orthopnea, or syncope. - Musculoskeletal: Reports leg swelling since second , discomfort in left popliteal area. - Respiratory: Reports shortness of breath, has undergone pulmonary testing. - Venous study: Deep veins of the lower extremity are bilaterally patent and compressible segmentally, no evidence of deep vein thrombosis, valvular competence intact. - Great saphenous veins: Bilaterally patent and compressible, saphenofemoral junctions are bilaterally competent. - Venous study: No evidence of deep vein thrombosis, valvular competence intact. - Popliteal cyst: Identified on the left leg, wy (more content not included)... Normal [facility] MTHFR DNA Varianton 07-22-20 25 MTHFR DNA Comment Normal . [facility] Comment on above: Result Comment: Resu lt: c.665C>T (p. [id number]), legacy name: [id number] - Detected, heterozygous c.1286A>C (p. [id number]), legacy name: [id number] - Detected, heterozygous Interpretation: This result is not associated with an increased risk for hyperhomocysteinemia. See Additional Clinical Information and Comments. Additional Clinical Information: Hyperhomocysteinemia is multifactorial involving genetic, clinical, and environmental risk factors. Reduced enzyme activity of methylenetetrahydrofolate reductase (MTHFR) is a genetic risk factor for hyperhomocysteinemia, particularly when serum folate levels are low. There are two common variants in the MTHFR gene that can decrease enzyme activity; c.665C>T (p. Jpe068Caz), legacy name [id number], and c.1286A>C (p. Hrb486Fra), legacy name [id number]. These variants do not independently increase risk of conditions related to hyperhomocysteinemia in the absence of elevated homocysteine levels. Measurement of total plasma homocysteine is recommended. Patients should share their MTHFR genotype with physicians who are making decisions regarding chemotherapy treatments that depend on folate, such as methotrexate. Guidelines do not recommend genotyping of these two MTHFR variants in the evaluation of venous thrombosis or obstetric risk due to limited evidence of clinical utility (PMID: 69893804). Comments: Genetic Coordinators are available for health care providers to discuss results at [phone] Test Details: Variants Analyzed: c.665C>T (p. Esh655Uwe), legacy name: C677T and c.1286A>C (p. Yfo262Zhi), legacy name: [id number] Methods/Limitations: DNA analysis of the MTHFR gene was performed by PCR amplification followed by restriction enzyme analysis. The diagnostic sensitivity is >99%. Results must be combined with clinical information for the most accurate interpretation. Molecular-based testing is highly accurate, but as in any laboratory test, diagnostic errors may occur. False positive or false negative results may occur for reasons that include genetic variants, blood transfusions, bone marrow transplantation, somatic or tissue-specific mosaicism, mislabeled samples, or erroneous representation of family relationships. This test was developed and its performance characteristics determined by [employer]. It has not been cleared or approved by the Food and Drug Administration. References: Marian SE, Arnulfo CJ, Carlin HV. ACMG Practice Guideline: lack of evidence for MTHFR polymorphism testing. Aisha Med. 2013 Dec;15(2):153-6. doi: 10.1038/gim.2012.165. Epub 2012Nov 08. PMID: 87884608. [place] [employer]' Committee on Practice Bulletins-Obstetrics. ACOG Practice Bulletin No. 197: Inherited Thrombophilias in . Obstet Gynecol. 2018 May;132(1):e18-e34. doi: 10.1097/AOG.5764426550212832. Erratum in: Obstet Gynecol. 2018 Aug;132(4):1069. PMID: 00128313. Performed By: #### L 4600.0155, L506.1001, L503.6150, L503.6550, L506.0200, L500.4100, L503.0106 ####[facility] [address] [place], [place], [address] MTHFR Reviewed Comment Normal . [facility] Comment on above: Result Comment: Tech nical Component performed at [facility] [place] Professional Component performed by: Yessi Mishra, PhD, [facility] [id number], [facility], [address] [place] [address] Performed at: - [facility] [place] [address], [place], [place] [id number] Agricultural Purchasing Agent: Lita Javier [facility], Phone: [phone] Performed By: #### L 4600.0155, L506.1001, L503.6150, L503.6550, L506.0200, L500.4100, L503.0106 ####[facility] [address] [place], [address] Venous Duplex US - Juan Manuel [facility] 07-18-2025 Venous Duplex US - Juan Manuel Extrem [facility] [address] [place] [address] Venous Duplex US - Juan Manuel [facility] 07/18/25 1021 MR#: [id number] Acct: [id number] Name: JACQUI MAS Rep #: [id number] : 1950 75 From: Rahul Marie MD Attending Dr: Dr. Mikey Samson MD Status: REG CLI Ordering Dr: Mikey Samson MD Date: 07/18/25 Location: [facility] Sex: F C Admitted: Reason For Study Reason For Study: Pain and Edema BLE RIGHT LEFT GSV is normal. CFV is compressible, spontaneous, phasic, competent, CFV is compressible, spontaneous, phasic, competent and demonstrates normal augmentation. and demonstrates normal augmentation. FV is compressible, spontaneous, phasic, competent FV is compressible, spontaneous, phasic, competent and demonstrates normal augmentation. and demonstrates normal augmentation. POP V is compressible, spontaneous, phasic, competent POP V is compressible, spontaneous, phasic, competent and demonstrates normal augmentation. and demonstrates normal augmentation. T/P Trunk is compressible. T/P Trunk is compressible. PTV is compressible. PTV is compressible. LT PerV is compressible. RT PerV is compressible. SFJ is competent and measures 0.44cm x 0.48 cm. SFJ is competent and measures 0.41cm x 0.41 cm. GSV proximal thigh measures 0.27cm x 0.24 cm. GSV proximal thigh measures 0.31cm x 0.34 cm. GSV at knee measures 0.28cm x 0.27 cm. GSV at knee measures 0.25cm x 0.24 cm. GSV above knee is competent. GSV is competent throughout. GSV below knee is INCOMPETENT for greater than 0.5 SSV mid calf is competent and measures 0.19cm x 0.19 seconds. cm. SSV mid calf is competent and measures 0.23cm x 0.23 Procedure cm. This is a venous duplex using B-mode, color flow and Hypoechoic, non vascular structure noted Lt Pop Fossa spectral Doppler. measuring 0.67cm x 2.08cm. Exam performed in department. Patient was scanned in reverse Trendelenburg position during reflux assessment. VL/Venous Duplex US - Juan Manuel Extrem Interpretation Summary Deep veins of the lower extremities are bilaterally patent and compressible segmentally. There is no evidence of deep vein thrombosis on either side. Valvular competence appears intact within the proximal deep venous systems bilaterally. The great saphenous veins appear bilaterally patent and compressible segmentally. Sapheno-femoral junctions are bilaterally competent . The right great saphenous vein appears segmentally competent. The left great saphenous vein appears competent above the knee. The left great saphenous vein appears incompetent below the knee. Small saphenous veins are patent and competent bilaterally. A non-vascular, hypoechoic structure is noted in the left popliteal space, measuring 0.67 cm x 2.08 cm. This probably represents a popliteal cyst. Clinical correlation is advised. Ordering Physician: Mikey Samson Referring Physician: Rosalina Valentine Performed By: Lilo Jimenez, STUART, RVT 07/18/25 2331 Date Rahul Marie MD CC: Dr. Rosalina Valentine, DO; Dr. 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 [address] Venous Duplex US - Juan Manuel Extrem 07/18/25 1021 MR#: [id number] Acct: [id number] Name: JACQUI MAS Rep #:[id number] : 1950 75 From: Rahul Marie MD Attending Dr: Dr. Mikey Samson MD Status: REG CLI Ordering Dr: Mikey Samson MD Date: Location: [facility]S Sex: F C Admitted: Reason For Study Reason For Study: Pain and Edema BLE RIGHT LEFT GSV is normal. CFV is compressible, spontaneous, phasic, competent, CFV is compressible, spontaneous, phasic, competent and demonstrates normal augmentation. and demonstrates normal augmentation. FV is compressible, spontaneous, phasic, competent FV is compressible, spontaneous, phasic, competent and demonstrates normal augmentation. and demonstrates normal augmentation. POP V is compressible, spontaneous, phasic, competent POP V is compressible, spontaneous, phasic, competent and demonstrates normal augmentation. and demonstrates normal augmentation. T/P Trunk is compressible. T/P Trunk is compressible. PTV is compressible. PTV is compressible. LT PerV is compressible. RT PerV is compressible. SFJ is competent and measures 0.44cm x 0.48 cm. SFJ is competent and measures 0.41cm x 0.41 cm. GSV proximal thigh measures 0.27cm x 0.24 cm. GSV proximal thigh measures 0.31cm x 0.34 cm. GSV at knee measures 0.28cm x 0.27 cm. GSV at knee measures 0.25cm x 0.24 cm. GSV above kneeis competent. GSV is competent throughout. GSV below kneeis INCOMPETENT for greater than 0.5 SSV mid calf is competent and measures 0.19cm x 0.19 seconds. cm. SSV mid calf is competent and measures 0.23cm x 0.23 Procedure cm. This is a venous duplex using B-mode, color flow and Hypoechoic, non vascular structure noted Lt Pop Fossa spectral Doppler. measuring 0.67cm x 2.08cm. Exam performed in department. Patient was scanned in reverse Trendelenburg position during reflux assessment. VL/Venous Duplex US - Juan Manuel Extrem Interpretation Summary Deep veins of the lower extremities are bilaterally patent and compressible segmentally. There is no evidence of deep vein thrombosis on either side. Valvular competence appears intact within the proximal deep venous systems bilaterally. The great saphenous veins appear bilaterally patent and compressible segmentally. Sapheno-femoral junctions are bilaterally competent . The right great saphenous vein appears segmentally competent. The left great saphenous vein appears competent above the knee. The left great saphenous vein appears incompetent below the knee. Small saphenous veins are patent and competent bilaterally. A non-vascular, hypoechoic structureis noted in the left popliteal space, measuring 0.67 cm x 2.08 cm. This probably represents a popliteal cyst. Clinicalcorrelation is advised. Ordering Physician: Mikey Samson Referring Physician: Rosalina Valentine Performed By: Lilo Jimenez, STUART, RVT 07/18/25 2331 Date _ Rahul Marie MD CC: Dr. Rosalina Valentine, DO; Dr. 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 [place], [place], [id number] Folate [Mass/volume] in Seru m or PlasmaOrdered By: Rosalina Valentine on 07-17-2025 Folate [Mass/Vol] ng/mL High 4.60-34.80 [facility] Folates,Serum (Folic Acid)on 07-17-2025 FOLATES,SERUM > 40.00 High 4.60-34.80 [facility] Comment on above: Order Comment: N Performed By: #### L 4600.0155, L506.1001, L503.6150, L503.6550, L506.0200, L500.4100, L503.0106 ####[facility] [address] [place], [place], [phone] Ironon 07-17-2025 Iron [Mass/Vol] 88 ug/dL Normal 50-170 [facility] Comment on above: Performed By: #### L 4600.0155, L506.1001, L503.6150, L503.6550, L506.0200, L500.4100, L503.0106 ####[facility] [address] [place], [place], [id number] Iron measurement (mass/mass) Ordered By: Rosalina Valentine on 07-17-2025 Iron (Unsp spec) [Mass/Mass] 88 ug/dL 50-170 [facility] LDL calc ser/plasOrdered By: Rosalina Valentine on 07-17-2025 Cholesterol in LDL [Mass/Vol] 248 mg/dL [facility] Comment on above: Pbwbmrvkxe=463-187 m g/dL & Higher Uzeo=526 mg/dL or greaterFriedwald Equation for LDL-C Lipid Profileon 07-17-2025 CHOL:HDL 5.56 Normal [facility] Comment on above: Performed By: #### L 4600.0155, L506.1001, L503.6150, L503.6550, L506.0200, L500.4100, L503.0106 ####[facility] [address] [place], [address] Cholesterol [Mass/Vol] 343 mg/dL High <=200 [facility] Comment on above: Result Comment: Chol esterol level, Desirable <200 mg/dL Borderline high cholesterol 200-239 mg/dL High cholesterol >=240 mg/dL Recommendations of the NCEP Adult Treatment Panel for the following risk-cutoff thresholds for the [place] population. Performed By: #### L 4600.0155, L506.1001, L503.6150, L503.6550, L506.0200, L500.4100, L503.0106 ####[facility] [address] [place], [address] Cholesterol in HDL [Mass/Vol] 62 mg/dL Normal [facility] Comment on above: Result Comment: [place] Cholesterol Education Program (NCEP) guidelines: <40 mg/dL: Low HDL-cholesterol (major risk factor for CHD) >= 60 mg/dL: High HDL-cholesterol (negative risk factor for CHD) HDL-cholesterol is affected by a number of factors, e.g. smoking, exercise, hormones, sex and age. Performed By: #### L 4600.0155, L506.1001, L503.6150, L503.6550, L506.0200, L500.4100, L503.0106 ####[facility] [address] [place], [address] Cholesterol in LDL [Mass/Vol] 248 mg/dL Normal [facility] Comment on above: Result Comment: Bord pzkreo=942-759 mg/dL Higher Huff=910 mg/dL or greater Friedwald Equation for LDL-C Performed By: #### L 4600.0155, L506.1001, L503.6150, L503.6550, L506.0200, L500.4100, L503.0106 ####[facility] [address] [place], [address] Cholesterol in VLDL [Mass/Vol] 33 mg/dL Normal 5-40 [facility] Comment on above: Performed By: #### L 4600.0155, L506.1001, L503.6150, L503.6550, L506.0200, L500.4100, L503.0106 ####[facility] [address] [place], [place], [id number] Triglyceride [Mass/Vol] 167 mg/dL Normal [facility] Comment on above: Result Comment: The drugs N-Acetylcysteine and Metamizole may falsely depress this assay. Normal range: <150 mg/dL Borderline High: 150-199 mg/dL High: 200-499 mg/dL Very High: >500 mg/dL Performed By: #### L 4600.0155, L506.1001, L503.6150, L503.6550, L506.0200, L500.4100, L503.0106 ####[facility] [address] [place], [place], [phone] No Panel InformationOrdered By: Rosalina Valentine on 07-17-2025 MTHFR Comment Comment . [facility] Comment on above: Technical Component performed at [employer] RTPProfessional Component performed by:Yessi Mishra, PhD, [id number], [facility], [address] [facility] [address]Kexaidjat at: - [facility] [id number], [place], [place] [id number] Director: Lita Javier [facility], Phone: [phone] Screening total cholesterol/ high density lipoprotein (HDL) cholesterol ratioOrdered By: Rosalina Valentine on 07-17-2025 Cholesterol.total/Chol esterol in HDL [Mass ratio] 5.56 {ratio} [facility] Serum or plasma cholesterol in HDL measurement (mass/volume)Ordered By: Rosalina Valentine on 07-17-2025 Cholesterol in HDL [Mass/Vol] 62 mg/dL >40 [facility] Comment on above: National Cholesterol Education Program (NCEP) guidelines:<40 mg/dL: Low HDL-cholesterol (major risk factor for CHD)>= 60 mg/dL: High HDL-cholesterol (negative risk factor for CHD)HDL-cholesterol is affected by a number of factors, e.g. smoking, exercise, hormones, sex and age. Serum or plasma cholesterol measurement (mass/volume)Ordered By: Rosalina Valentine on 07-17-2025 Cholesterol [Mass/Vol] 343 mg/dL High <201 [facility] Comment on above: Cholesterol level, D esirable <200 mg/dLBorderline high cholesterol 200-239 mg/dLHigh cholesterol >=240 mg/dLRecommendations of the NCEP Adult Treatment Panel for the following risk-cutoff thresholds for the [place] population. Serum or plasma ferritin teddy surement (mass/volume)Ordered By: Rosalina Valentine on 07-17-2025 Ferritin [Mass/Vol] 181 ng/mL 22-378 [facility] Triglycerides measurementOrd ered By: Rosalina Valentine on 07-17-2025 Triglyceride [Mass/Vol] 167 mg/dL <199 [facility] Comment on above: The drugs N-Acetylcy steine and Metamizole may falsely depress this assay. Normal range: <150 mg/dLBorderline High: 150-199 mg/dLHigh: 200-499 mg/dLVery High: >500 mg/dL Vitamin B12on 07-17-2025 Cobalamin (Vitamin B12) [Mass/Vol] 790 pg/mL Normal 180-914 [facility] Comment on above: Performed By: #### L 4600.0155, L506.1001, L503.6150, L503.6550, L506.0200, L500.4100, L503.0106 ####[facility] [address] [place], [address] Vitamin B12 ser/plasOrdered By: Rosalina Valentine on 07-17-2025 Cobalamin (Vitamin B12) [Mass/Vol] 790 pg/mL 180-914 [facility] Vitamin D,25 Hydroxyon 07-17 Vitamin D 25-OH 102.0 ng/mL High 30-100 [facility] Comment on above: Result Comment: Giana min D Status Deficiency: <20 ng/mL (50nmol/L) Insufficiency: 20-30 ng/mL (50-75 nmol/L) Sufficiency: 30-100 ng/mL (75-250 nmol/L) Toxicity: >100 ng/mL (>250 nmol/L) Performed By: #### L 4600.0155, L506.1001, L503.6150, L503.6550, L506.0200, L500.4100, L503.0106 ####[facility] [address] [place], [address] Plastic Surgery Visit Report on 07-14-2025 Plastic Surgery Visit Report [facility] Plastic Reconstructive Surgery [address] [place] [address] OFFICE VISIT Date of Service: 07/14/25 MR#: [id number] Acct: [id number] Name: JACQUI MAS Rep #: [id number] : 1950 Provider: Dr. Mikey Samson MD Age/Sex: 75/F Location: [facility] Status: Signed Intake Vital Signs 3 07/14/25 16:03 Height 5 ft 2 in Weight: 150 lb BMI 27.4 BP 158/87 H Blood Pressure Location Lt brachial Position Sitting Respiration 18 Pulse 80 Temp 99.0 F Temp Source Temporal Pulse Oximetry (%) 97 Oxygen Delivery Method room air Intake Visit Reasons: Edema Chief Complaint: edema lower extremities Is patient in pain?: No Allergies No Known Allergies Allergy (Verified 07/14/25 16:04) Medications 3 ???Medication ???Instructions ???Recorded ???Confirmed ???Type cardio miracle PO BID 05/02/25 History estradiol 0.01% (0.1 mg/gram) 1 g vaginal QWEEK 05/02/25 5 History vaginal cream Have you fallen in the past year?: No Nurse's Note: pt reports has had for years edema in lower extremities. Painful when on feet for length of time, edema decreases when legs are elevated. [facility] Medical History Leg pain, bilateral Carotid artery stenosis Hypothyroidism Hyperlipidemia Hypertension Fibromyalgia Arthritis History of Clostridioides difficile infection Surgical History H/O cataract extraction ( 11/2024) H/O: hysterectomy ( 1997) Family History Father CVA (cerebral vascular accident) Hypertension Sister Cancer Social History (Updated 07/14/25 @ 16:03 by Azucena Art) household members: spouse number of children: 4 Smoking Status: Former smoker how long ago did patient quit smokin years alcohol intake: current Alcohol type: wine details: ON OCCASION substance use type: does not use additional social history: pt denies edibles, denies marijuana use, denies aspirin and ibuprofen use, denies smoking. pt denies any history of blood clots. HPI Edema Details: The patient is a 75-year-old female presenting with lower extremity edema and lipedema. She reports chronic edema in her lower extremities, exacerbated by prolonged standing, which has been present since her second . The swelling is painful and improves with leg elevation. The patient has lipedema, with fat deposits in her legs causing discomfort, especially noticeable after losing 30 pounds. She has been advised to use compression stockings but finds them uncomfortable in warm weather. She also experiences chest pain and dyspnea on exertion, limiting her physical activity. A cardiac evaluation, including a heart sonogram, was normal, with further tests pending. ROS: - Cardiovascular: Reports chest pain and dyspnea on exertion. Denies palpitations or syncope. - Musculoskeletal: Reports lower extremity edema and pain with prolonged standing. Denies joint pain or stiffness. Attestation: Documentation on this patient encounter was supported using ambient scribe technology/ voice AI technology. The patient consented to recording for the purpose of documenting the encounter. Provider reviewed content of the generated note prior to signature. ROS General General: Yes good health; No fatigue, fever(s) or weight loss HENMT HENMT: No rhinitis, sore throat/mouth sore, nasal congestion, contacts or glaucoma Endo Endocrine: No thyroid disease, polydipsia, heat intolerance, cold intolerance, hepatitis or excessive urine Skin Skin: No Bleeding, bruising, changing moles or suspicious lesion Musc Musculoskeletal: Yes joint pain and joint stiffness; No muscle weakness, back pain, osteoarthritis or Muscle aches/ myalgia Neuro Neurological: No headache(s), No lightheadedness and No numbness Cardio Cardiovascular: No chest pain, pacemaker, fatigue or shortness of breat with exertion Psych Psychiatric: No depression, claustrophobia or anxiety Resp Respiratory: Yes shortness of breath; No spitting up, sleep apnea, asthma, emphysema, TB, Cough or Smoker Gastro Gastrointestinal: No diarrhea, constipation, blood in stool, nausea, vomiting or abdominal bloating Perfecto Hematologic: No anemia, No bleeding and No abnormal bleeding Genitourinary: No urinary frequency, blood in urine or incontinence Exam Details Lower extremities - Cardiovascular: Peripheral pulses 2+ bilaterally, Inspection: negative Stemmer sign, no swelling of the feet Sensation to light touch intact bilaterally Apparent fat deposition in the upper medial calf in the distribution of the lipedema diagnosis Coding Lev (more content not included)... Normal [facility] Echocardiogram study reportO rdered By: Aguila Villafuerte on 07-07-2025 Study report [facility] Cardi[facility] Services [address] [place] [address] Echo Complete 07/04/25 1006 MR#: [id number] Acct: [id number] Name: JACQUI MAS MOLLY Rep #:[id number] : 1950 75 From: Aguila Kirkpatrick Attending Dr: Dr. Rosalina Valentine DO atus: REG CLI Ordering Dr: Rosalina Valentine DO Date: 06/07 07/31 Location: CVS Sex: F C Admitted: Reason For Study Reason For Study: SOB, MURMUR Procedure This was a 2D Doppler, Color Flow transthoracic echocardiogram. The study was technically difficult. Due to suboptimal parasternal imaging windows. Exam performed in department. Left Ventricle Normal LV size. Left ventricular systolic function is normal. The left ventricular ejection fraction is 65 %. No regional wall motion abnormalities noted. Right Ventricle Normal RV size. Normal systolic function. Atria Normal left atrium. Normal right atrium. Mitral Valve There is mild to moderate mitral annular calcification. Trivial mitral valve insufficiency. Tricuspid Valve Normal tricuspid valve. Mild (1+) tricuspid valve insufficiency. Pulmonary artery systolic pressure is 24 mmHg. Aortic Valve Trisinus/trileaflet aortic valve. Mild focal aortic valve thickening. Peak aortic valve gradient 27 mmHg. Mean aortic valve gradient 17 mmHg. Pulmonic Valve Normal pulmonic valve. Great Vessels Normal aortic root. The pulmonary artery is normal size. Inferior vena cava collapse with respiration. Pericardium/Pleural No pericardial effusion. MMode/2D Measurements & Calculations LVIDd: 3.9 cm IVSd: 1.0 cm LAV(MOD-bp): 54.2 ml LVIDs: 2.4 cm LVPWd: 1.0 cm LAV(MOD-bp) Indexed: 32.9 ml/m2 FS: 38.3 % LAV(MOD-sp2): 47.4 ml LAV(MOD-sp4): 57.2 ml SV(MOD-sp4): 35.7 ml LVAd ap4: 21.4 cm2 LVAd ap2: 22.1 cm2 LVLd ap4: 6.9 cm LVLd ap2: 6.7 cm SI(MOD-sp4): 21.7 ml/m2 EDV(MOD-sp4): 55.4 ml EDV(MOD-sp2): 60.6 ml EDV(sp4-el): 56.5 ml EDV(sp2-el): 61.6 ml LVAs ap4: 11.2 cm2 LVAs ap2: 10.9 cm2 LVLs ap4: 5.5 cm LVLs ap2: 5.3 cm ESV(MOD-sp4): 19.6 ml ESV(MOD-sp2): 20.4 ml ESV(sp4-el): 19.6 ml ESV(sp2-el): 18.9 ml EF(MOD-sp4): 64.5 % EF(MOD-sp2): 66.3 % EF(sp4-el): 65.3 % SV(MOD-sp2): 40.2 ml SV(sp4-el): 36.9 ml LA A4 area: 18.7 cm2 SI(MOD-sp2): 24.4 ml/m2 LA dimension(2D): 3.2 cm TAPSE: 2.3 cm RA A4 area: 10.5 cm2 Time Measurements MV dec time: 0.23 sec Doppler Measurements & Calculations MV E max mickey: 95.3 cm/sec Lat Peak E' Mickey: 10.3 cm/sec Med Peak E' Mickey: 7.3 cm/sec MV A max mickey: 103.0 cm/sec E/E' lat: 9.2 E/E' med: 13.1 MV E/A: 0.93 MV V2 max: 115.8 cm/sec MV P1/2t max mickey: 100.9 cm/sec Ao V2 max: 261.5 cm/sec MV max P.4 mmHg MV P1/2t: 63.7 msec Ao max P.4 mmHg MV V2 mean: 70.6 cm/sec MV dec slope: 464.4 cm/sec2 Ao V2 mean: 197.0 cm/sec MV mean P.2 mmHg Ao mean P.2 mmHg MV V2 VTI: 25.5 cm MVA(P1/2t): 3.5 cm2 Ao V2 VTI: 59.7 cm AV (velocity ratio): 0.40 LV V1 max: 102.8 cm/sec MR max mickey: 553.3 cm/sec PA V2 max: 93.6 cm/sec LV V1 max P.2 mmHg MR max P.4 mmHg PA V2 mean: 59.2 cm/sec LV V1 mean P.4 mmHg MR mean mickey: 457.9 cm/sec PA V2 VTI: 16.3 cm LV V1 mean: 72.2 cm/sec MR mean P.9 mmHg LV V1 VTI: 23.8 cm MR VTI: 164.2 cm TR max mickey: 224.9 cm/sec TR max P.3 mmHg ECHO/Echo Complete Interpretation Summary Normal LV size. Left ventricular systolic function is normal. The left ventricular ejection fraction is 65 %. Pulmonary artery systolic pressure is 24 mmHg. Ordering Physician: Rosalina Valentine Referring Physician: Rosalina Valentine Performed By: Isabel Griffiths, STUART, RVT 09/01/25 1123 Date _ Aguila Villafuerte MD CC: Dr. 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 [address] Echo Complete 07/04/25 1006 MR#: [id number] Acct: [id number] Name: JACQUI MAS Rep #: [id number] : 1950 75 From: Aguila Villafurete MD Attending Dr: Dr. Rosalina Valentine DO Status: REG CL I Ordering Dr: Rosalina Valentine DO Date: 07/04/25 Location: [facility] Sex: F C Admitted: Reason For Study Reason For Study: SOB, MURMUR Procedure This was a 2D Doppler, Color Flow transthoracic echocardiogram. The study was technically difficult. Due to suboptimal parasternal imaging windows. Exam performed in department. Left Ventricle Normal LV size. Left ventricular systolic function is normal. The left ventricular ejection fraction is 65 %. No regional wall motion abnormalities noted. Right Ventricle Normal RV size. Normal systolic function. Atria Normal left atrium. Normal right atrium. Mitral Valve There is mild to moderate mitral annular calcification. Trivial mitral valve insufficiency. Tricuspid Valve Normal tricuspid valve. Mild (1+) tricuspid valve insufficiency. Pulmonary artery systolic pressure is 24 mmHg. Aortic Valve Trisinus/trileaflet aortic valve. Mild focal aortic valve thickening. Peak aortic valve gradient 27 mmHg. Mean aortic valve gradient 17 mmHg. Pulmonic Valve Normal pulmonic valve. Great Vessels Normal aortic root. The pulmonary artery is normal size. Inferior vena cava collapse with respiration. Pericardium/Pleural No pericardial effusion. MMode/2D Measurements Calculations LVIDd: 3.9 cm IVSd: 1.0 cm LAV(MOD-bp): 54.2 ml LVIDs: 2.4 cm LVPWd: 1.0 cm LAV(MOD-bp) Indexed: 32.9 ml/m2 FS: 38.3 % LAV(MOD-sp2): 47.4 ml LAV(MOD-sp4): 57.2 ml SV(MOD-sp4): 35.7 ml LVAd ap4: 21.4 cm2 LVAd ap2: 22.1 cm2 LVLd ap4: 6.9 cm LVLd ap2: 6.7 cm SI(MOD-sp4): 21.7 ml/m2 EDV(MOD-sp4): 55.4 ml EDV(MOD-sp2): 60.6 ml EDV(sp4-el): 56.5 ml EDV(sp2-el): 61.6 ml LVAs ap4: 11.2 cm2 LVAs ap2: 10.9 cm2 LVLs ap4: 5.5 cm LVLs ap2: 5.3 cm ESV(MOD-sp4): 19.6 ml ESV(MOD-sp2): 20.4 ml ESV(sp4-el): 19.6 ml ESV(sp2-el): 18.9 ml EF(MOD-sp4): 64.5 % EF(MOD-sp2): 66.3 % EF(sp4-el): 65.3 % SV(MOD-sp2): 40.2 ml SV(sp4-el): 36.9 ml LA A4 area: 18.7 cm2 SI(MOD-sp2): 24.4 ml/m2 LA dimension(2D): 3.2 cm TAPSE: 2.3 cm RA A4 area: 10.5 cm2 Time Measurements MV dec time: 0.23 sec Doppler Measurements Calculations MV E max mickey: 95.3 cm/sec Lat Peak E' Mickey: 10.3 cm/sec Med Peak E' Mickey: 7.3 cm/sec MV A max mickey: 103.0 cm/sec E/E' lat: 9.2 E/E' med: 13.1 MV E/A: 0.93 MV V2 max: 115.8 cm/sec MV P1/2t max mickey: 100.9 cm/sec Ao V2 max: 261.5 cm/sec MV max P.4 mmHg MV P1/2t: 63.7 msec Ao max P.4 mmHg MV V2 mean: 70.6 cm/sec MV dec slope: 464.4 cm/sec2 Ao V2 mean: 197.0 cm/sec MV mean P.2 mmHg Ao mean P.2 mmHg MV V2 VTI: 25.5 cm MVA(P1/2t): 3.5 cm2 Ao V2 VTI: 59.7 cm AV (velocity ratio): 0.40 LV V1 max: 102.8 cm/sec MR max mickey: 553.3 cm/sec PA V2 max: 93.6 cm/sec LV V1 max P.2 mmHg MR max P.4 mmHg PA V2 mean: 59.2 cm/sec LV V1 mean P.4 mmHg MR mean mickey: 457.9 cm/sec PA V2 VTI: 16.3 cm LV V1 mean: 72.2 cm/sec MR mean P.9 mmHg LV V1 VTI: 23.8 cm MR VTI: 164.2 cm TR max mickey: 224.9 cm/sec TR max P.3 mmHg ECHO/Echo Complete Interpretation Summary Normal LV size. Left ventricular systolic function is normal. The left ventricular ejection fraction is 65 %. Pulmonary artery systolic pressure is 24 mmHg. Ordering Physician: Rosalina Valentine Referring Physician: Rosalina Valentine Performed By: Isabel Griffiths RDCS, RVT 07/07/25 1123 Date Aguila Villafuerte MD CC: Dr. 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 Normal [facility] Absolute lymphocyte countOrd ered By: Rosalina Valentine on 06-24-2025 Lymphocytes Auto (Unsp spec) [#/Vol] 3.12 10*3/uL 0.83-4.51 [facility] Absolute neutrophil countOrd ered By: Rosalina Valentine on 06-24-2025 Neutrophils (Bld) [#/Vol] 2.7 10*3/uL 2.0-7.7 [facility] Anion gap in Serum or Plasma Ordered By: Rosalina Valentine on 06-24-2025 Anion gap [Moles/Vol] 12 mmol/L 5-15 [facility] Automated lymphocyte count a s percentage of total leukocytesOrdered By: Rosalina Valentine on 06-24-2025 Lymphocytes/100 WBC Auto (Unsp spec) 47.3 % High 19-41 [facility] BUN/creatinine ratioOrdered By: Rosalina Valentine on 06-24-2025 Urea nitrogen/Creatinine [Mass ratio] 33.9 mg/mg High 10-20 [facility] Basophil percentageOrdered B y: Rosalina Valentine on 06-24-2025 Basophils/100 WBC (Bld) 0.6 % 0-1 [facility] Bilirubin, totalOrdered By: Rosalina Valentine on 06-24-2025 Bilirubin [Mass/Vol] 0.32 mg/dL Normal 0.00-1.30 [facility] Comment on above: Performed By: #### L 506.0400, L501.6710, L501.9520, L101.9900, L100.0100, L501.21634, L500.4050, L503.7505 #### [facility] [address] [place], [address] CBC W/Diff, Automatedon 06-06 Absolute Lymph 3.12 X10 3/uL Normal 0.83-4.51 [facility] Comment on above: Performed By: #### L 506.0400, L501.6710, L501.9520, L101.9900, L100.0100, L501.67111, L500.4050, L503.7505 #### [facility] [address] [place], [address] Absolute Neut 2.7 X10 3/uL Normal 2.0-7.7 [facility] Comment on above: Performed By: #### L 506.0400, L501.6710, L501.9520, L101.9900, L100.0100, L501.49864, L500.4050, L503.7505 #### [facility] [address] [place], [address] Basophils/100 WBC (Bld) 0.6 % Normal 0-1 [facility] Comment on above: Performed By: #### L 506.0400, L501.6710, L501.9520, L101.9900, L100.0100, L501.01793, L500.4050, L503.7505 #### [facility] [address] [place], [address] Eosinophils/100 WBC (Bld) 1.5 % Normal 0-5 [facility] Comment on above: Performed By: #### L 506.0400, L501.6710, L501.9520, L101.9900, L100.0100, L501.84425, L500.4050, L503.7505 #### [facility] [address] [place], [address] Erythrocyte distribution width (RBC) [Ratio] 12.6 % Normal 11.6-14.6 [facility] Comment on above: Performed By: #### L 506.0400, L501.6710, L501.9520, L101.9900, L100.0100, L501.83313, L500.4050, L503.7505 #### [facility] [address] [place], [address] Hematocrit (Bld) [Volume fraction] 40.0 % Normal 37-47 [facility] Comment on above: Performed By: #### L 506.0400, L501.6710, L501.9520, L101.9900, L100.0100, L501.44340, L500.4050, L503.7505 #### [facility] [address] [place], [address] Hemoglobin (Bld) [Mass/Vol] 13.2 g/dL Normal 12.0-15.0 [facility] Comment on above: Performed By: #### L 506.0400, L501.6710, L501.9520, L101.9900, L100.0100, L501.47413, L500.4050, L503.7505 #### [facility] [address] [place], [address] IG% 0.300 Normal 0.0-0.9 [facility] Comment on above: Result Comment: IG% - Immature Granulocytes (promyelocytes, myelocytes and metamyelocytes) > 1% indicates that a LEFT SHIFT is Present. Performed By: #### L 506.0400, L501.6710, L501.9520, L101.9900, L100.0100, L501.55016, L500.4050, L503.7505 #### [facility] [address] [place], [address] Lymphocytes/100 WBC (Bld) 47.3 % High 19-41 [facility] Comment on above: Performed By: #### L 506.0400, L501.6710, L501.9520, L101.9900, L100.0100, L501.60398, L500.4050, L503.7505 #### [facility] [address] [place], [address] MCH (RBC) [Entitic mass] 28.9 pg Normal 27.0-32.0 [facility] Comment on above: Performed By: #### L 506.0400, L501.6710, L501.9520, L101.9900, L100.0100, L501.58371, L500.4050, L503.7505 #### [facility] [address] [place], [address] MCHC (RBC) [Mass/Vol] 33.0 g/dL Normal 32-36 [facility] Comment on above: Performed By: #### L 506.0400, L501.6710, L501.9520, L101.9900, L100.0100, L501.47462, L500.4050, L503.7505 #### [facility] [address] [place], [address] MCV (RBC) [Entitic vol] 87.5 fL Normal 81-99 [facility] Comment on above: Performed By: #### L 506.0400, L501.6710, L501.9520, L101.9900, L100.0100, L501.24946, L500.4050, L503.7505 #### [facility] [address] [place], [address] Monocytes/100 WBC (Bld) 9.2 % Normal 0-10 [facility] Comment on above: Performed By: #### L 506.0400, L501.6710, L501.9520, L101.9900, L100.0100, L501.49360, L500.4050, L503.7505 #### [facility] [address] [place], [address] Neutrophils/100 WBC (Bld) 41.1 % Low 47-70 [facility] Comment on above: Performed By: #### L 506.0400, L501.6710, L501.9520, L101.9900, L100.0100, L501.63853, L500.4050, L503.7505 #### [facility] [address] [place], [address] Nucleated RBC (Bld) [#/Vol] 0 10*3/uL Normal 0-5 [facility] Comment on above: Performed By: #### L 506.0400, L501.6710, L501.9520, L101.9900, L100.0100, L501.55352, L500.4050, L503.7505 #### [facility] [address] [place] [place], [address] Platelet mean volume (Bld) [Entitic vol] 9.9 fL Normal 6.2-12.0 [facility] Comment on above: Performed By: #### L 506.0400, L501.6710, L501.9520, L101.9900, L100.0100, L501.36877, L500.4050, L503.7505 #### [facility] [address] [place] [place], [address] Platelets (Bld) [#/Vol] 307 10*3/uL Normal 150-450 [facility] Comment on above: Performed By: #### L 506.0400, L501.6710, L501.9520, L101.9900, L100.0100, L501.12524, L500.4050, L503.7505 #### [facility] [address] [place], [address] RBC (Bld) [#/Vol] 4.57 10*6/uL Normal 4.2-5.4 [facility] Comment on above: Performed By: #### L 506.0400, L501.6710, L501.9520, L101.9900, L100.0100, L501.09183, L500.4050, L503.7505 #### [facility] [address] [place], [address] RDW SD 39.9 fl Normal 35.1-43.9 [facility] Comment on above: Performed By: #### L 506.0400, L501.6710, L501.9520, L101.9900, L100.0100, L501.56407, L500.4050, L503.7505 #### [facility] [address] [place], [address] WBC (Bld) [#/Vol] 6.6 10*3/uL Normal 4.4-11.0 [facility] Comment on above: Performed By: #### L 506.0400, L501.6710, L501.9520, L101.9900, L100.0100, L501.06322, L500.4050, L503.7505 #### [facility] [address] [place], [address] CRPon 06-24-2025 C-REACTIVE PROT < 3.00 Normal 0.0-3.0 [facility] Comment on above: Performed By: #### L 506.0400, L501.6710, L501.9520, L101.9900, L100.0100, L501.58052, L500.4050, L503.7505 ####[facility] [address] [place], [address] Carbon dioxide, total [Moles /volume] in Central venous bloodOrdered By: Rosalina Valentine on 06-24-2025 CO2 [Moles/Vol] 24.3 mmol/L Normal 21.0-32.0 [facility] Comment on above: Performed By: #### L 506.0400, L501.6710, L501.9520, L101.9900, L100.0100, L501.59931, L500.4050, L503.7505 #### [facility] [address] [place], [address] Chloride assayOrdered By: Kaitlin Valentine on 06-24-2025 Chloride [Moles/Vol] 102 mmol/L Normal 98-108 [facility] Comment on above: Performed By: #### L 506.0400, L501.6710, L501.9520, L101.9900, L100.0100, L501.63483, L500.4050, L503.7505 #### [facility] [address] [place], [address] Comprehensive Metabolic Prof ilsrini 06-24-2025 ALK PHOS 81 U/L Normal 35-104 [facility] Comment on above: Performed By: #### L 506.0400, L501.6710, L501.9520, L101.9900, L100.0100, L501.20743, L500.4050, L503.7505 #### [facility] [address] [place], [address] BUN/CRE 33.9 RATIO High 10-20 [facility] Comment on above: Performed By: #### L 506.0400, L501.6710, L501.9520, L101.9900, L100.0100, L501.47870, L500.4050, L503.7505 #### [facility] [address] [place], [address] GAP 12 Normal 5-15 [facility] Comment on above: Performed By: #### L 506.0400, L501.6710, L501.9520, L101.9900, L100.0100, L501.97338, L500.4050, L503.7505 #### [facility] [address] [place], [address] Potassium [Moles/Vol] 4.2 mmol/L Normal 3.3-5.1 [facility] Comment on above: Performed By: #### L 506.0400, L501.6710, L501.9520, L101.9900, L100.0100, L501.22925, L500.4050, L503.7505 #### [facility] [address] [place], [address] T PROT 6.8 g/dL Normal 5.9-8.4 [facility] Comment on above: Performed By: #### L 506.0400, L501.6710, L501.9520, L101.9900, L100.0100, L501.82618, L500.4050, L503.7505 #### [facility] [address] [place], [address] Comprehensive Metabolic Prof ilOrdered By: Rosalina Valentine on 06-24-2025 AST [Catalytic activity/Vol] 21 U/L Normal <=31 [facility] Comment on above: Performed By: #### L 506.0400, L501.6710, L501.9520, L101.9900, L100.0100, L501.46972, L500.4050, L503.7505 #### [facility] [address] [place], [address] Eosinophil percentageOrdered By: Rosalina Valentine on 06-24-2025 Eosinophils/100 WBC (Bld) 1.5 % 0-5 [facility] Erythrocyte Sed Rateon 06-24 SED RATE 9 mm/hr Normal 0-30 [facility] Comment on above: Performed By: #### L 506.0400, L501.6710, L501.9520, L101.9900, L100.0100, L501.34890, L500.4050, L503.7505 #### [facility] [address] [place], [place], [address] Erythrocyte distribution wid th ratioOrdered By: Rosalina Valentine on 06-24-2025 Erythrocyte distribution width (RBC) [Ratio] 12.6 % 11.6-14.6 [facility] Erythrocyte distribution wid th standard deviationOrdered By: Rosalina Valentine on 06-24-2025 Erythrocyte distribution width (RBC) [Ratio] 39.9 fl 35.1-43.9 [facility] Erythrocyte sedimentation ra teOrdered By: Rosalina Valentine on 06-24-2025 ESR (Bld) [Velocity] 9 mm/h 0-30 [facility] Free O5Hhrlgzn By: Rosalina Mayo s on 06-24-2025 Free T3 [Mass/Vol] 3.5 pg/mL Normal 2.18-3.98 [facility] Comment on above: Performed By: #### L 506.0400, L501.6710, L501.9520, L101.9900, L100.0100, L501.36834, L500.4050, L503.7505 #### [facility] [address] [place], [address] Glomerular filtration rate ( GFR) estimation/1.73 sq m using serum, plasma, or whole bOrdered By: Rosalina Valentine on 06-24-2025 GFR/1.73 sq M.predicted among non-blacks MDRD (S/P/Bld) [Vol rate/Area] 97 mL/min/{1.73_m2} Normal >60 [facility] Comment on above: mL/min/1.73m2 CKD-EP I Creatinine Equation (2020) Result Comment: mL/m in/1.73m2 CKD-EPI Creatinine Equation (2020) Performed By: #### L 506.0400, L501.6710, L501.9520, L101.9900, L100.0100, L501.68749, L500.4050, L503.7505 #### [facility] [address] [place], [address] Hematocrit Auto (Bld) [Volum e fraction]Ordered By: Rosalina Valentine on 06-24-2025 Hematocrit (Bld) [Volume fraction] 40.0 % 37-47 [facility] Hemoglobin measurementOrdere d By: Rosalina Valentine on 06-24-2025 Hemoglobin (Bld) [Mass/Vol] 13.2 g/dL 12.0-15.0 [facility] Immature granulocytes/100 WB C Auto (Bld)Ordered By: Rosalina Valentine on 06-24-2025 Immature granulocytes/100 WBC (Bld) 0.300 % 0.0-0.9 [facility] Comment on above: IG% - Immature Granu locytes (promyelocytes, myelocytes and metamyelocytes) > 1% indicates that a LEFT SHIFT is Present. MCV (mean corpuscular volume ) determinationOrdered By: Rosalina Valentine on 06-24-2025 MCV (RBC) [Entitic vol] 87.5 fL 81-99 [facility] Mean corpuscular hemoglobin (MCH) determinationOrdered By: Rosalina Valentine on 06-24-2025 MCH (RBC) [Entitic mass] 28.9 pg 27.0-32.0 [facility] Mean corpuscular hemoglobin concentration (MCHC) determinationOrdered By: Rosalina Valentine on 06-24-2025 MCHC (RBC) [Mass/Vol] 33.0 g/dL 32-36 [facility] Mean platelet volume determi nationOrdered By: Rosalina Valentine on 06-24-2025 Platelet mean volume (Bld) [Entitic vol] 9.9 fL 6.2-12.0 [facility] Monocyte percentageOrdered B y: Rosalina Valentine on 06-24-2025 Monocytes/100 WBC (Bld) 9.2 % 0-10 [facility] Natriuretic peptide.B prohor mark N-Terminal [Mass/volume] in Serum or PlasmaOrdered By: Rosalina Valentine on 06-24-2025 Natriuretic peptide.B prohormone N-Terminal [Mass/Vol] 334 pg/mL <1800 [facility] Comment on above: Heart Failure Unlike ly: < 300 pg/mLHeart Failure Likely< 50 Years: > 450 pg/mL50-75 Years: > 900 pg/mL>75 Years: > 1800 pg/mL Neutrophil percentageOrdered By: Rosalina Valentine on 06-24-2025 Neutrophils/100 WBC (Bld) 41.1 % Low 47-70 [facility] Nucleated red blood cell per centageOrdered By: Rosalinadae Valentine on 06-24-2025 Nucleated RBC/100 WBC (Bld) [Ratio] 0 % 0-5 [facility] Platelet countOrdered By: Kaitlin Meme on 06-24-2025 Platelets (Bld) [#/Vol] 307 10*3/uL 150-450 [facility] Potassium measurement (mass/ volume)Ordered By: Rosalina Valentine on 06-24-2025 Potassium (Unsp spec) [Mass/Vol] 4.2 mmol/L 3.3-5.1 [facility] Pro- Brain NATRIURETIC PEPTI Gokul 06-24-2025 Natriuretic peptide B (Bld) [Mass/Vol] 334 pg/mL Normal <=1800 [facility] Comment on above: Result Comment: Hear t Failure Unlikely: < 300 pg/mL Heart Failure Likely < 50 Years: > 450 pg/mL 50-75 Years: > 900 pg/mL >75 Years: > 1800 pg/mL Performed By: #### L 506.0400, L501.6710, L501.9520, L101.9900, L100.0100, L501.44060, L500.4050, L503.7505 ####[facility] [id number] [place], [place], [id number] RBC Auto (Bld) [#/Vol]Ordere d By: Rosalina Valentine on 06-24-2025 RBC (Bld) [#/Vol] 4.57 10*6/uL 4.2-5.4 [facility] Serum creatinine measurement (mass/volume)Ordered By: Rosalina Valentine on 06-24-2025 Creatinine [Mass/Vol] 0.50 mg/dL Low 0.70-1.20 [facility] Comment on above: Performed By: #### L 506.0400, L501.6710, L501.9520, L101.9900, L100.0100, L501.72907, L500.4050, L503.7505 #### [facility] [address] [place], [address] Serum globulin measurementOr dered By: Rosalina Valentine on 06-24-2025 Globulin (S) [Mass/Vol] 2.7 g/dL Normal 2.2-4.2 [facility] Comment on above: Performed By: #### L 506.0400, L501.6710, L501.9520, L101.9900, L100.0100, L501.35787, L500.4050, L503.7505 #### [facility] [address] [place], [address] Serum glucose measurement (m ass/volume)Ordered By: Rosalina Valentine on 06-24-2025 Glucose [Mass/Vol] 111 mg/dL High 70-99 [facility] Comment on above: Performed By: #### L 506.0400, L501.6710, L501.9520, L101.9900, L100.0100, L501.83322, L500.4050, L503.7505 #### [facility] [address] [place], [place], [id number] Serum or plasma C reactive p rotein measurement (mass/volume)Ordered By: Rosalina Valentine on 06-24-2025 CRP [Mass/Vol] mg/L 0.0-3.0 [facility] Serum or plasma alanine barnes otransferase (ALT) measurementOrdered By: Rosalina Valentine on 06-24-2025 ALT [Catalytic activity/Vol] 10 U/L Normal <=34 [facility] Comment on above: Performed By: #### L 506.0400, L501.6710, L501.9520, L101.9900, L100.0100, L501.49701, L500.4050, L503.7505 #### [facility] [address] [place], [address] Serum or plasma albumin huma urement (mass/volume)Ordered By: Rosalina Valentine on 06-24-2025 Albumin [Mass/Vol] 4.1 g/dL Normal 3.4-4.8 [facility] Comment on above: Performed By: #### L 506.0400, L501.6710, L501.9520, L101.9900, L100.0100, L501.97688, L500.4050, L503.7505 #### [facility] [address] [place], [address] Serum or plasma albumin/glob ulin mass ratioOrdered By: Rosalina Valentine on 06-24-2025 Albumin/Globulin [Mass ratio] 1.6 {ratio} Normal 0.9-2.4 [facility] Comment on above: Performed By: #### L 506.0400, L501.6710, L501.9520, L101.9900, L100.0100, L501.49148, L500.4050, L503.7505 #### [facility] [address] [place], [place], [phone] (493) Serum or plasma alkaline theo sphatase measurementOrdered By: Rosalina Valentine on 06-24-2025 ALP [Catalytic activity/Vol] 81 U/L 35-104 [facility] Serum or plasma calcium huma urement (mass/volume)Ordered By: Rosalina Valentine on 06-24-2025 Calcium [Mass/Vol] 9.4 mg/dL Normal 7.6-11.0 [facility] Comment on above: Performed By: #### L 506.0400, L501.6710, L501.9520, L101.9900, L100.0100, L501.25048, L500.4050, L503.7505 #### [facility] [address] [place], [address] Serum or plasma urea nitroge n measurement (mass/volume)Ordered By: Rosalina Valentine on 06-24-2025 Urea nitrogen [Mass/Vol] 17 mg/dL Normal 4-19 [facility] Comment on above: Performed By: #### L 506.0400, L501.6710, L501.9520, L101.9900, L100.0100, L501.44025, L500.4050, L503.7505 #### [facility] [address] [place], [place], [id number] Sodium levelOrdered By: Rosalina Valentine on 06-24-2025 Sodium [Moles/Vol] 139 mmol/L Normal 133-145 [facility] Comment on above: Performed By: #### L 506.0400, L501.6710, L501.9520, L101.9900, L100.0100, L501.93135, L500.4050, L503.7505 #### [facility] [address] [place], [place], [id number] T4 Free Directon 06-24-2025 T4 FREE DIRECT 1.10 ng/dL Normal 0.76-1.46 [facility] Comment on above: Performed By: #### L 506.0400, L501.6710, L501.9520, L101.9900, L100.0100, L501.25043, L500.4050, L503.7505 ####[facility] [id number] [place], [place], [id number] T4 freeOrdered By: Rosalina miner on 06-24-2025 Free T4 [Mass/Vol] 1.10 ng/dL 0.76-1.46 [facility] TSH DL <= 0.005 mIU/L QnOrde red By: Rosalina Valentine on 06-24-2025 TSH Qn 2.580 uIU/mL 0.300-4.200 [facility] Thyroid Stim Hormone (TSH)on 06-24-2025 TSH 2.580 uIU/mL Normal 0.300-4.200 [facility] Comment on above: Performed By: #### L 506.0400, L501.6710, L501.9520, L101.9900, L100.0100, L501.79927, L500.4050, L503.7505 #### [facility] [address] [place], [address] Total proteinOrdered By: Dora Valentine on 06-24-2025 Protein [Mass/Vol] 6.8 g/dL 5.9-8.4 [facility] White blood cell (WBC) count Ordered By: Rosalina Valentine on 06-24-2025 WBC (Bld) [#/Vol] 6.6 10*3/uL 4.4-11.0 [facility] MR/BMS.BVSon 05-02-2025 MR/BMS.BVS [facility] [address] [place] [address] OFFICE VISIT Date of Service: 05/02/25 MR#: [id number] Acct: [id number] Name: JACQUI MAS Rep #: [id number] : 1950 Provider: CHLOÉ Rico Age/Sex: 74/F Location: BMS.BVS Status: Signed Intake Vital Signs 05/02/25 09:20 Weight: 152 lb BP 153/82 H Blood Pressure Location Rt brachial Position Sitting Respiration 16 Pulse 85 Pulse Source Monitor Temp 98.4 F Temp Source Temporal Pulse Oximetry (%) 96 Oxygen Delivery Method room air Intake Visit Reasons: Varicose Veins bothersome Is patient in pain?: No Allergies No Known Allergies Allergy (Verified 05/02/25 09:17) Medications ???Medication ???Instructions ???Recorded ???Confirmed ???Type cardio miracle PO BID 05/02/25 History estradiol 0.01% (0.1 mg/gram) 1 g vaginal QWEEK 05/02/25 5 History vaginal cream Is last menstrual period known: No Post menopausal: Yes Patient : No Have you fallen in the past year?: No PFSH Medical History (Updated 05/06/25 @ 07:34 by CHLOÉ Rico) Leg pain, bilateral Carotid artery stenosis Hypothyroidism Hyperlipidemia Hypertension Fibromyalgia Arthritis History of Clostridioides difficile infection Surgical History (Updated 05/02/25 @ 09:14 by Bela Hamm MA) H/O cataract extraction ( 11/2024) H/O: hysterectomy ( 1997) Family History (Updated 05/02/25 @ 09:15 by Bela Hamm MA) Father CVA (cerebral vascular accident) Hypertension Sister Cancer Social History (Updated 05/02/25 @ 09:16 by Bela Hamm MA) household members: spouse number of children: 4 Smoking Status: Former smoker how long ago did patient quit smokin years alcohol intake: current Alcohol type: wine details: ON OCCASION HPI HPI HPI: JACQUI MAS, is a 74 F who presents to the office today for evaluation of suspected varicose veins/venous insufficiency as referred by her PCP Lilo Rojas. She complains primarily of swelling which she describes as fairly focal to the medial aspect of her proximal calf starting just below the knee. She describes that the swelling worsens as the day goes on and by the end of the day it looks like sacks hanging there. In the morning, the swelling is down and there is only mild appearance of fullness at these locations. She also has some tenderness to palpation in these areas. She has noticed these areas of swelling for decades, but they are bothering her more recently and she is recently become more focused on taking an active role in addressing various aspects of her health. She has lost about 35 pounds over the last few months, intentionally. She does try to stay active, feels that the swelling and tenderness here in her legs is limiting this however. She does elevate her legs when resting. She has not tried compression stockings. ROS General General: Yes weight change and weakness (legs); No appetite, fatigue, colon cancer or breast cancer HEENT HEENT: Yes eye surgery; No difficulty swallowing, eye injury, swollen glands or hoarseness Additional Details: catarac November 2024 Endo Endocrine: No thyroid disease, diabetes mellitus, thyroid cancer, Hair loss, heat intolerance or cold intolerance Skin Skin: No rash or changing moles Musc Musculoskeletal: Yes back problems and arthritis; No rheumatoid arthritis, gout or joint pain Cardio Cardiovascular: Yes murmur; No pacemaker, heart disease, atrial fibrillation, high blood pressure, heart attack, heart stent, palpitations, shortness of breath with exertion or chest pain Psych Psychiatric: No depression, anxiety or hearing voices Resp Respiratory: Yes shortness of breath, No sleep apnea, No cough, No COPD, No asthma, No emphysema and No wheezing Gastro Gastrointestinal: No abdominal pain, No nausea or vomiting, No diarrhea, No constipation, No blood in stool, No acid reflux, No hemorrhoids, No ulcers, No gallbladder problem and No black,tarry stools Perfecto Hematologic: No blood thinners, No blood disorders, No bleeding, No anemia and No blood clots Neuro Neurologic: No system reviewed and no additional complaints, except as documented, No as per HPI, No abnormal gait, No abnormal hearing, No abnormal movements, No abnormal speech, No behavioral changes, No burning sensations, No confusion, No convulsions, No disequilibrium, No dizziness, Yes localized weakness, No frequent falls, No headache(s), No lack of coordination, No loss of vision, No memory loss, No numbness, No other visual disturbances, No radicular pain, No restless legs, No sensory deficit, No syncope, No tingling, No tremor(s), Yes weakness (legs) and No other Exam Const General: cooperative, comfortable and no acute distress (more content not included)... Normal [facility] Absolute lymphocyte countOrd ered By: Rosalina Valentine on 11-14-2023 Lymphocytes Auto (Unsp spec) [#/Vol] 2.80 10*3/uL 0.83-4.51 [facility] Basophil percentageOrdered B y: Rosalina Kinneykelsey on 11-14-2023 Basophils/100 WBC (Bld) 0.5 % 0-1 [facility] Bilirubin [Mass/Vol] 0.30 mg/dL 0.20-1.00 [facility] Comment on above: For patients on eltr ombopag therapy, use of Dimension [place] TBIL is not recommended. Chloride [Moles/Vol] 105 mmol/L 98-107 [facility] Cholesterol [Mass/Vol] 278 mg/dL <200 [facility] Comment on above: <200 mg/dL Desirable 200-240 mg/dL Borderline >240 mg/dL High Risk Eosinophils/100 WBC (Bld) 1.9 % 0-5 [facility] Glucose [Mass/Vol] 109 mg/dL 74-106 [facility] Comment on above: Fasting Glucose resu lt from 100 to 125 mg/dL suggests IMPAIRED HOMEOSTASIS per A.D.A. criteria. Neutrophils (Bld) [#/Vol] 2.7 10*3/uL 2.0-7.7 [facility] Neutrophils/100 WBC (Bld) 43.0 % 47-70 [facility] Potassium [Moles/Vol] 4.1 mmol/L 3.5-5.1 [facility] Protein [Mass/Vol] 7.1 g/dL 6.4-8.2 [facility] Sodium [Moles/Vol] 137 mmol/L 136-145 [facility] Triglyceride [Mass/Vol] 157 mg/dL <199 [facility] Comment on above: The drugs N-Acetylcy steine and Metamizole may falsely depress this assay.Serum Triglycerides Reference Interval Normal <150 mg/dL Borderline high 150 - 199 mg/dL High 200 - 499 mg/dL Very High > or = 500 mg/dL WBC (Bld) [#/Vol] 6.2 10*3/uL 4.4-11.0 [facility] Blood erythrocytes count (nu mber/volume)Ordered By: Rosalina Valentine on 11-14-2023 RBC (Bld) [#/Vol] 4.87 10*6/uL 4.2-5.4 [facility] Blood hemoglobin measurement (mass/volume)Ordered By: Rosalina Valentine on 11-14-2023 Hemoglobin (Bld) [Mass/Vol] 13.9 g/dL 12.0-15.0 [facility] Blood lymphocytes/100 leukoc ytesOrdered By: Rosalina Valentine on 11-14-2023 Lymphocytes/100 WBC (Bld) 45.5 % 19-41 [facility] Blood monocytes/100 leukocyt esOrdered By: Rosalina Valentine on 11-14-2023 Monocytes/100 WBC (Bld) 8.9 % 0-10 [facility] Blood platelet mean volumeOr dered By: Rosalina Valentine on 11-14-2023 Platelet mean volume (Bld) [Entitic vol] 10.5 fL 6.2-12.0 [facility] Determination of erythrocyte mean corpuscular volume (MCV)Ordered By: Rosalina Valentine on 11-14-2023 MCV (RBC) [Entitic vol] 88.9 fL 81-99 [facility] Hematocrit Auto (Bld) [Volum e fraction]Ordered By: Rosalina Valentine on 11-14-2023 Hematocrit (Bld) [Volume fraction] 43.3 % 37-47 [facility] - Chemistry and C hemistry - challengeOrdered By: Rosalina Valentine on 11-14-2023 ALP [Catalytic activity/Vol] 67 U/L 45-117 [facility] ALT [Catalytic activity/Vol] 23 U/L 13-56 [facility] CO2 [Moles/Vol] 28.0 mmol/L 21.0-32.0 [facility] Free T4 [Mass/Vol] 0.93 ng/dL 0.76-1.46 [facility] Globulin (S) [Mass/Vol] 3.5 g/dL 2.2-4.2 [facility] Urea nitrogen/Creatinine [Mass ratio] 36.3 mg/mg 10-20 [facility] - Hematology and Cell countsOrdered By: Rosalina Valentine on 11-14-2023 Erythrocyte distribution width (RBC) [Entitic vol] 40.4 fL 35.1-43.9 [facility] Erythrocyte distribution width (RBC) [Ratio] 12.4 % 11.6-14.6 [facility] Immature granulocytes/100 WBC (Bld) 0.200 % 0.0-0.9 [facility] Comment on above: IG% - Immature Granu locytes (promyelocytes, myelocytes and metamyelocytes) > 1% indicates that a LEFT SHIFT is Present. MCH (RBC) [Entitic mass] 28.5 pg 27.0-32.0 [facility] Nucleated RBC/100 WBC (Bld) [Ratio] 0 % 0-5 [facility] MCHC Auto (RBC) [Mass/Vol]Or dered By: Rosalina Valentine on 11-14-2023 MCHC (RBC) [Mass/Vol] 32.1 g/dL 32-36 [facility] No Panel InformationOrdered By: Rosalina Valentine on 11-14-2023 Estimated GFR (MDRD) Amer 131 mL/min >60 [facility] Comment on above: GFR Calc Estimated GFR (MDRD) Non-Af Amer 108 mL/min >60 [facility] Comment on above: Non- GFR Calc Free Triiodothyronine (T3) pg/dL 3.1 pg/mL 2.18-3.98 [facility] Thyroid Stimulating Hormone (TSH) 1.16 uIU/mL 0.358-3.74 [facility] Platelets bldOrdered By: Dora Valentine on 11-14-2023 Platelets (Bld) [#/Vol] 323 10*3/uL 150-450 [facility] Serum or plasma albumin huma urement (mass/volume)Ordered By: Rosalina Valentine on 11-14-2023 Albumin [Mass/Vol] 3.6 g/dL 3.2-5.0 [facility] Serum or plasma albumin/glob ulin mass ratioOrdered By: Rosalina Valentine on 11-14-2023 Albumin/Globulin [Mass ratio] 1.0 {ratio} 0.9-2.4 [facility] Serum or plasma calcium huma urement (mass/volume)Ordered By: Rosalina Valentine on 11-14-2023 Calcium [Mass/Vol] 9.4 mg/dL 8.5-10.1 [facility] Serum or plasma cholesterol in HDL measurement (mass/volume)Ordered By: Rosalina Valentine on 11-14-2023 Cholesterol in HDL [Mass/Vol] 46 mg/dL >40 [facility] Comment on above: The drugs N-Acetylcy steine and Metamizole may falsely depress this assay. Reference Range HDL <40 mg/dL Low HDL Cholesterol HDL >or= 60 mg/dL High HDL Cholesterol Serum or plasma cholesterol in VLDL measurement (mass/volume)Ordered By: Rosalina Valentine on 11-14-2023 Cholesterol in VLDL [Mass/Vol] 31 mg/dL 5-40 [facility] Serum or plasma creatinine m easurement (mass/volume)Ordered By: Rosalina Valentine on 11-14-2023 Creatinine [Mass/Vol] 0.58 mg/dL 0.55-1.02 [facility] Comment on above: The validity of the calculated GFR & GFRAA in patients over 70 years has not been determined. Clinical correlation is essential. Serum or plasma low density lipoprotein (LDL) cholesterol measurement (mass/volume)Ordered By: Rosalina Valentine on 11-14-2023 Cholesterol in LDL [Mass/Vol] 201 mg/dL 0-130 [facility] Serum or plasma urea nitroge n measurement (mass/volume)Ordered By: Rosalina Valentine on 11-14-2023 Urea nitrogen [Mass/Vol] 21 mg/dL 7-18 [facility] Thin prep Papanicolaou smear with manual screeningOrdered By: Rosalina Valentine on 11-14-2023 Thin prep Papanicolaou smear with manual screening 24 U/L 15-37 [facility] Thin prep Papanicolaou smear with manual screening 4 5-15 [facility] C. difficile Ql (Stl)Ordered By: Dr. Valentine on 12-16-2022 C. difficile GDH Antigen & Toxins Toxigenic C. difficile [facility] Clostridium difficile detect ion by polymerase chain reactionOrdered By: Dr. Valentine on 12-16-2022 C. difficile DNA OSWALDO+probe Ql (Unsp spec) [facility] Clostridium difficile detect ion by polymerase chain reactionOrdered By: Dr. Valentine on 12-05-2022 C. difficile DNA OSWALDO+probe Ql (Unsp spec) [facility] Stool Clostridium difficile detectionOrdered By: Dr. Valentine on 12-05-2022 C. difficile Ql (Stl) [facility] Stool lactoferrin detection by immunoassayOrdered By: Dr. Valentine on 12-05-2022 Lactoferrin IA Ql (Stl) [facility] Vital Signs Date Time Vital Sign Value Performing Clinician Taylor frias 08-07-2025 15:27-0400 Diastolic blood pressure 84 mm[Hg] Dr. Rosalina Valentine DO Work Phone: [facility] 08-07-2025 15:27-0400 Heart rate 89 /min Dr. Rosalina Valentine DO Work Phone: [facility] 08-07-2025 15:27-0400 Respiratory rate 18 /min Dr. Rosalina Valentine DO Work Phone: [facility] 08-07-2025 15:27-0400 SaO2% (BldA) [Mass fraction] 96 % Dr. Rosalina Valentine DO Work Phone: [facility] 08-07-2025 15:27-0400 Systolic blood pressure 136 mm[Hg] Dr. Rosalina Valentine DO Work Phone: [facility] 07-14-2025 16:03-0400 Body height 157.[address] Rosalina Valentine DO Work Phone: [facility] 07-14-2025 16:03-0400 Body mass index (BMI) [Ratio] 27.4 kg/m2 Dr. Rosailna Valentine DO Work Phone: [facility] 07-14-2025 16:03-0400 Body temperature 99 [degF] Dr. Rosalina Valentine DO Work Phone: [facility] 07-14-2025 16:03-0400 Body weight 68.[address] Rosalina Valentine DO Work Phone: [facility] 07-14-2025 16:03-0400 Diastolic blood pressure 87 mm[Hg] Dr. Rosalina Valentine DO Work Phone: [facility] 07-14-2025 16:03-0400 Heart rate 80 /min Dr. Rosalina Valentine DO Work Phone: [facility] 07-14-2025 16:03-0400 Respiratory rate 18 /min Dr. Rosalina Valentine DO Work Phone: [facility] 07-14-2025 16:03-0400 SaO2% (BldA) [Mass fraction] 97 % Dr. Rosalina Valentine DO Work Phone: [facility] 07-14-2025 16:03-0400 Systolic blood pressure 158 mm[Hg] Dr. Rosalina Valentine DO Work Phone: [facility] 05-02-2025 09:20-0400 Body temperature 98.4 [degF] Dr. Rosalina Valentine DO Work Phone: [facility] 05-02-2025 09:20-0400 Body weight 68.[address] Rosalina Valentine DO Work Phone: [facility] 05-02-2025 09:20-0400 Diastolic blood pressure 82 mm[Hg] Dr. Rosalina Valentine DO Work Phone: [facility] 05-02-2025 09:20-0400 Heart rate 85 /min Dr. Rosalina Valentine DO Work Phone: [facility] 05-02-2025 09:20-0400 Respiratory rate 16 /min Dr. Rosalina Valentine DO Work Phone: [facility] 05-02-2025 09:20-0400 SaO2% (BldA) [Mass fraction] 96 % Dr. Rosalina Valentine DO Work Phone: [facility] 05-02-2025 09:20-0400 Systolic blood pressure 153 mm[Hg] Dr. Rosalina Valentine DO Work Phone: [facility] Encounters Encounter Date Encounter Type Care Provider Facility Start: 09-19-2025 ambulatory [facility] Facility:[facility] Start: 09-15-2025 ambulatory [facility] Facility:[facility] Start: 09-05-2025 ambulatory [facility] Facility:[facility] Start: 09-05-2025 End: 09-05-2025 ambulatory [facility] Facility[facility] Start: 08-12-2025 ambulatory [facility] Facility:[facility] Start: 08-07-2025 End: 08-07-[address] Mikey Samson MD -[facility] Work Phone: Start: 08-07-2025 End: 08-07-[address] Rosalina Valentine DO Work Phone: -[facility] Start: 07-24-2025 End: 07-24-[address] Rosalina Valentine DO Work Phone: -Pulmonary Services/Neurology Start: 07-24-2025 End: 07-24-[address] Rosalina Valentine DO -Pulmonary Services/Neurology Work Phone: Start: 07-24-2025 End: 07-24-2025 ambulatory Rosalina Valentine Facility:[facility] Start: 07-18-2025 End: 07-18-[address] Rosalina Valentine DO Work Phone: -Cardiovascular Services Start: 07-18-2025 End: 07-18-[address] Mikey Samson MD -Cardiovascular Services Work Phone: Start: 07-17-2025 End: 07-18-[address] Rosalina Valentine DO Work Phone: -Laboratory [place] [facility] Start: 07-17-2025 End: 07-17-[address] Rosalina Valentine DO -[facility] [place] [facility] Start: 07-17-2025 End: 07-17-2025 [facility] Start: 07-14-2025 End: 07-14-[address] Mikey Samson MD -[facility] Work Phone: Start: 07-14-2025 End: 07-14-[address] Rosalina Valentine DO Work Phone: -[facility] Start: 07-04-2025 Non-patient / Non-visit Dr. Jim QUINTEROS -[facility] Start: 07-04-2025 End: 07-04-[address] Rosalina Valentine DO Work Phone: -Cardiovascular Services Start: 07-04-2025 End: 07-04-[address] Rosalina Valentine DO -Cardiovascular Services Work Phone: Start: 07-04-2025 End: 07-04-2025 ambulatory Rosalinadae Valentine Facility:[facility] Start: 06-24-2025 End: 06-24-[address] Rosalina Valentine DO Work Phone: -[facility] [place] Start: 06-24-2025 End: 06-24-[address] Rosalina Valentine DO -[facility] [place] Work Phone: Start: 06-24-2025 End: 06-24-2025 [facility] Start: 05-02-2025 End: 05-02-2025 Patient encounter procedure Arabella LUEVANO -[facility] Work Phone: Start: 05-02-2025 End: 05-02-[address] Rosalina Valentine DO Work Phone: [facility] Work Phone: Start: 11-14-2023 End: 11-14-2023 ambulatory [facility] Work Phone: Start: 11-14-2023 End: 11-14-2023 Patient encounter procedure [facility], Dona Malhotra [facility] Start: 12-16-2022 End: 12-16-2022 ambulatory [facility] Work Phone: Start: 12-16-2022 End: 12-16-2022 Patient encounter procedure [facility], Specimen Start: 12-05-2022 End: 12-05-2022 ambulatory [facility] Work Phone: Start: 12-05-2022 End: 12-05-2022 Patient encounter procedure [facility] Start: 09-21-2022 End: 09-21-2022 Patient encounter procedure [facility] [place] Procedures Date Procedure Procedure Detail Performing Clinician Start: 07-17-2025 5,10-methylenetetrahydrofolate reductase gene analysis Dr. Rosalina Valentine DO Work Phone: Comment on above: Result:c.665C>T (p. 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 [id number]), legacy name: [id number] - Detected, heterozygousInterpretation:This result is not associated with an increased risk forhyperhomocysteinemia. See Additional Clinical Informationand Comments.Additional Clinical Information:Hyperhomocysteinemia is multifactorial involving genetic,clinical, and environmental risk factors. Reduced enzymeactivity of methylenetetrahydrofolate reductase (MTHFR) pat genetic risk factor for hyperhomocysteinemia,particularly when serum folate levels are low. There aretwo common variants in the MTHFR gene that can decreaseenzyme activity; c.665C>T (p. [id number]), legacy [id number], and c.1286A>C (p. Gvu102Lwy), legacy name [id number].These variants do not independently increase risk ofconditions related to hyperhomocysteinemia in the absenceof elevated homocysteine levels. Measurement of totalplasma homocysteine is recommended. Patients should sharetheir MTHFR genotype with physicians who are makingdecisions regarding chemotherapy treatments that depend onfolate, such as methotrexate.Guidelines do not recommend genotyping of these two MTHFRvariants in the evaluation of venous thrombosis orobstetric risk due to limited evidence of clinical utility(PMID: 08186171). Comments:Genetic Coordinators are available for health careproviders to discuss results at [phone] Details:Variants Analyzed: c.665C>T (p. [id number]), legacy name:C677T and c.1286A>C (p. Xbg453Uio), legacy name: [id number]/Limitations:DNA analysis of the MTHFR gene was performed by PCRamplification followed by restriction enzyme analysis. Thediagnostic sensitivity is >99%. Results must be combinedwith clinical information for the most accurateinterpretation. Molecular-based testing is highlyaccurate, but as in any laboratory test, diagnosticerrors may occur. False positive or false negative resultsmay occur for reasons that include genetic variants, bloodtransfusions, bone marrow transplantation, somatic ortissue-specific mosaicism, mislabeled samples, or erroneousrepresentation of family relationships.This test was developed and its performancecharacteristics determined by [employer]. It has not beencleared or approved by the Food and Drug Administration.References:Marian SE, Arnulfo CJ, Carlin HV. [facility] PracticeGuideline: lack of evidence for MTHFR polymorphism testing.Aisha Med. 2012;15(2):153-6. doi: 10.1038/gim.2012.165.Epub 2012Nov 08. PMID: 18711453.[place] [employer]'Committee on Practice Bulletins-Obstetrics. ACOG PracticeBulletin No. 197: Inherited Thrombophilias in .Obstet Gynecol. 2018 May;132(1):e18-e34. doi:10.1097/AOG.[id number]. Erratum in: Obstet Gynecol.2018 Aug;132(4):1069. PMID: 84298840. Start: 07-17-2025 Vitamin D, 25-hydroxy measurement Dr. Kaitlin Valentine DO Work Phone: Comment on above: Vitamin D StatusDeficiency: <20 ng/mL (5 0nmol/L)Insufficiency: 20-30 ng/mL (50-75 nmol/L)Sufficiency: 30-100 ng/mL (75-250 nmol/L)Toxicity: >100 ng/mL (>250 nmol/L) Start: 09-21-2022 Screening mammography Clostridium difficile detection Clostridium difficile detection Lactoferrin measurement Plan of Treatment Date Care Activity Detail Author US.doppler Lower extremity vessels [facility] [place] Payers Date Payer Category Payer Self-pay [id number] 2016 Medicare [id number] Unknown [id number] 2.16.8 [id number] Unknown [id number] 2.16.8 [id number] Unknown [id number] 2.16.8 40.1.423577.3.579.2.462 Unknown [id number] 2.16.8 40.1.202711.3.579.2.462 Unknown [id number] 2.16.8 40.1.493191.3.579.2.462 Unknown [id number] 2.16.8 40.1.408701.3.579.2.462 Unknown [id number] 2.16.8 40.1.979361.3.579.2.462 Unknown [id number] 2.16.8 40.1.853031.3.579.2.462 Unknown [id number] 2.16.8 40.1.095900.3.579.2.462 Unknown [id number] 2.16.8 40.1.082036.3.579.2.462 Unknown [id number] 2.16.8 40.1.410855.3.579.2.462 Unknown [id number] 2.16.8 40.1.394802.3.579.2.462 Unknown [id number] 2.16.8 40.1.761816.3.579.2.462 Unknown [id number] 2.16.8 [id number] Social History Date Type Detail Facility Tobacco smoking stat us CTIS Unknown if ever smoked [facility] [place] Work Phone: Start: 1950 Sex Assigned At Female W [facility] Start: 05-02-2025 End: 07-14-2025 Tobacco smoking status NHIS Ex-smoker (finding) [facility] [place] Sex Female [facility] Evaluation note 05-02-2025 Note Date & Type Note Facility 05-02-2025 Evaluation note Diagnosis Onset Date Resolution Leg pain, bilateral acute May 02, 2025 9:07am Lower extremity edema acute Apr 9:07am Spider veins of both lower extremities acute May 02 9:07am [facility] [place] Work Phone: Evaluation note 05-02-2025 Note Date & Type Note Facility 05-02-2025 Evaluation note Diagnosis Onset Date Resolution Leg pain, bilateral acute May 02, 2025 9:07am Lower extremity edema acute Mikey 2024 9:07am Spider veins of both lower extremities acute May 02 9:07am Lower extremity edema acute Jul 3:51pm [facility] Work Phone: Evaluation note 05-02-2025 Note Date & Type Note Facility 05-02-2025 Evaluation note Diagnosis Onset Date Resolution Leg pain, bilateral acute May 02, 2025 9:07am Lower extremity edema acute Mikey 2024 9:07am Spider veins of both lower extremities acute Idania [address], 202 5 9:07am Leg pain, bilateral acute Septe mber 2024 3:51pm Lipedema of lower extremity acute July 14 2 025 3:51pm Lower extremity edema acute Sep tem2024 3:51pm Spider veins of both lower extremities acute July 14, 2025 3:51pm [facility] [place] Work Phone: Evaluation note Note Date & Type Note Facility Evaluation note No assessment information availa ble [facility] [place] Work Phone: Reason for referral (narrative) Note Date & Type Note Facility Reason for referral (narrative) No reason for referral information available [facility] Work Phone: Chief Complaint and Reason for Visit Chief Complaint SCREENING DROPOFF Chief Complaint Admit Date Varicose Veins bothersome May 02 9:07am Chief Complaint Admit Date Varicose Veins bothersome May 02 9:07am FASTING June 24, 2025 8: 53am Reason for Visit Admit Date Leg pain, bilateral May 02, 2025 9:07 am Lower extremity edema May 02, 2025 9: 07am Spider veins of both lower extremities J [facility] 2024 9:07am Chief Complaint Admit Date Varicose Veins bothersome May 02 9:07am FASTING June 24, 2025 8: 53am SOB, CARDIAC MURMUR July 04, 2025 10 :01am Chief Complaint Admit Date Varicose Veins bothersome May 02 9:07am FASTING June 24, 2025 8: 53am SOB, CARDIAC MURMUR July 04, 2025 10 :01am Edema July 14, 2025 3:51pm Reason for Visit Admit Date Leg pain, bilateral May 02, 2025 9:07 am Lower extremity edema May 02, 2025 9: 07am Spider veins of both lower extremities J [facility] 2024 9:07am Lower extremity edema July 14 3:51pm Chief Complaint Admit Date Varicose Veins bothersome May 02 9:07am FASTING June 24, 2025 8: 53am SOB, CARDIAC MURMUR July 04, 2025 10 :01am Edema July 14, 2025 3:51pm LEG PAIN July 18, 2025 10:05am PAIN AND EDEMA BLE July 18, 2025 10:21am DYSPNEA July 24, 2025 8:50am Reason for Visit Admit Date Leg pain, bilateral May 02, 2025 9:07 am Lower extremity edema May 02, 2025 9: 07am Spider veins of both lower extremities J une 2024 9:07am Leg pain, bilateral July 14, 2025 3:51pm Lipedema of lower extremity July 3:51pm Lower extremity edema July 14 3:51pm Spider veins of both lower extremities S eptember 2024 3:51pm Chief Complaint Admit Date Varicose Veins bothersome May 02 9:07am FASTING June 24, 2025 8: 53am SOB, CARDIAC MURMUR July 04, 2025 10 :01am Edema July 14, 2025 3:51pm LEG PAIN July 18, 2025 10:05am PAIN AND EDEMA BLE July 18, 2025 10:21am DYSPNEA July 24, 2025 8:50am FOLLOW UP August 07, 2025 3: 08pm Family History No Family History Records Found Relationship Condition Age at Onset Recorded Date/T arlen father Cerebrovascular accident (CVA) Unknown Hypertension Unknown sister Malignant neoplasm Unknown Summary Purpose Advance Directives No Advanced Directives Records Found Additional Source Comments Care Teams (unrecognized sec tion and content) Team Status: Active Member Role Status Dates Dr. Rosalina Valentine DO Family Provider Active Dr. Rosalina Valentine DO Primary Care Provider Active Team Status: Inactive Member Role Status Dates Dr. Rosalina Valentine DO Primary Care Provider, Attending Ginna robbins Active Team Status: Inactive Member Role Status Dates Dr. Rosalina Valentine DO Primary Care Provide r, Attending Provider, Referring Provider Active Team Status: Inactive Member Role Status Dates Dr. Rosalina Valentine DO Primary Care Provider Active Start: May 02, 2025 End: May 02, 2025 CHLOÉ Rico Attending Provider Active Star t: May 02, 2025 End: May 02, 2025 DANILO Forbes Referring Provider Active St art: May 02, 2025 End: May 02, 2025 Team Status: Active Member Role/Relationship Status Dates Dr. Rosalina Valentine DO Primary Care Provider Active Team Status: Inactive Member Role/Relationship Status Dates Dr. Rosalina Valentine DO Primary Care Provider Active Start: May 02, 2025 End: May 02, 2025 CHLOÉ Rico Attending Provider Active Star t: May 02, 2025 End: May 02, 2025 DANILO Forbes Referring Provider Active St art: May 02, 2025 End: May 02, 2025 Team Status: Inactive Member Role/Relationship Status Dates Dr. Rosalina Valentine DO Primary Care Provider Active Start: June 24, 2025 End: June 24, 2025 Dr. Rosalina Valentine DO Attending Provider Active St art: June 24, 2025 End: June 24, 2025 Dr. Rosalina Valentine DO Referring Provider Active St art: June 24, 2025 End: June 24, 2025 Team Status: Inactive Member Role/Relationship Status Dates Dr. Rosalina Valentine DO Primary Care Provider Active Start: July 04, 2025 End: July 04, 2025 Dr. Rsoalina Valentine DO Attending Provider Active St art: July 04, 2025 End: July 04, 2025 Dr. Rosalina Valentine DO Referring Provider Active St art: July 04, 2025 End: July 04, 2025 Team Status: Active Member Role/Relationship Status Dates Dr. Rosalina Valentine DO Primary Care Provider Active Start: July 04, 2025 Dr. Aguila Villafuerte MD Attending Provider Active S tart: July 04, 2025 Team Status: Inactive Member Role/Relationship Status Dates Dr. Rosalina Valentine DO Primary Care Provider Active Start: July 14, 2025 End: July 14, 2025 Dr. Rosalina Valentine DO Referring Provider Active St art: July 14, 2025 End: July 14, 2025 Dr. Mikey Samson MD Attending Provider Active Start: July 14, 2025 End: July 14, 2025 Team Status: Active Member Role/Relationship Status Dates Dr. Rosalina Valentine DO Primary care physician Active Team Status: Inactive Member Role/Relationship Status Dates Dr. Rosalina Valentine DO Primary care physician Active Start: May 02, 2025 End: May 02, 2025 CHLOÉ Rico Attending physician Active Sta rt: May 02, 2025 End: May 02, 2025 DANILO Forbes Referring Provider Active St art: May 02, 2025 End: May 02, 2025 Team Status: Inactive Member Role/Relationship Status Dates Dr. Rosalina Valentine DO Primary care physician Active Start: June 24, 2025 End: June 24, 2025 Dr. Rosalina Valentine DO Attending physician Active S tart: June 24, 2025 End: June 24, 2025 Dr. Rosalina Valentine DO Referring Provider Active St art: June 24, 2025 End: June 24, 2025 Team Status: Inactive Member Role/Relationship Status Dates Dr. Rosalina Valentine DO Primary care physician Active Start: July 04, 2025 End: July 04, 2025 Dr. Rosalina Valentine DO Attending physician Active S tart: July 04, 2025 End: July 04, 2025 Dr. Rosalina Valentine DO Referring Provider Active St art: July 04, 2025 End: July 04, 2025 Team Status: Active Member Role/Relationship Status Dates Dr. Rosalina Valentine DO Primary care physician Active Start: July 04, 2025 Dr. Aguila Villafuerte MD Attending physician Active Start: July 04, 2025 Team Status: Inactive Member Role/Relationship Status Dates Dr. Rosalina Valentine DO Primary care physician Active Start: July 14, 2025 End: July 14, 2025 Dr. Rosalina Valentine DO Referring Provider Active St art: July 14, 2025 End: July 14, 2025 Dr. Mikey Samson MD Attending physician Active Start: July 14, 2025 End: July 14, 2025 Team Status: Inactive Member Role/Relationship Status Dates Dr. Rosalina Valentine DO Primary care physician Active Start: July 17, 2025 End: July 17, 2025 Dr. Rosalina Valentine DO Attending physician Active S tart: July 17, 2025 End: July 17, 2025 Team Status: Inactive Member Role/Relationship Status Dates Dr. Rosalina Valentine DO Primary care physician Active Start: July 18, 2025 End: July 18, 2025 Dr. Mikey Samson MD Attending physician Active Start: July 18, 2025 End: July 18, 2025 Dr. Mikey Samson MD Referring Provider Active Start: July 18, 2025 End: July 18, 2025 Team Status: Active Member Role/Relationship Status Dates Dr. Rahul Marie MD Attending physician Active Start: July 18, 2025 Dr. Mikey Samson MD Referring Provider Active Start: July 18, 2025 Team Status: Active Member Role/Relationship Status Dates Dr. Rosalina Valentine DO Primary care physician Active Start: July 24, 2025 Dr. Rosalina Valentine DO Attending physician Active S tart: July 24, 2025 Dr. Rosalina Valentine DO Referring Provider Active St art: July 24, 2025 Team Status: Inactive Member Role/Relationship Status Dates Dr. Rosalina Valentine DO Primary care physician Active Start: July 24, 2025 End: July 24, 2025 Dr. Rosalina Valentine DO Attending physician Active S tart: July 24, 2025 End: July 24, 2025 Dr. Rosalina Valentine DO Referring Provider Active St art: July 24, 2025 End: July 24, 2025 Team Status: Inactive Member Role/Relationship Status Dates Dr. Rosalina Valentine DO Primary care physician Active Start: August 07, 2025 End: August 07, 2025 Dr. Rosalina Valentine DO Referring Provider Active St art: August 07, 2025 End: August 07, 2025 Dr. Mikey Samson MD Attending physician Active Start: August 07, 2025 End: August 07, 2025 Goals (unrecognized section and content) Goals may be documented in a n alternate sectionGoals may be documented in an alternate sectionGoals may be documented in an alternate sectionGoals may be documented in an alternate sectionGoals may be documented in an alternate sectionGoals may be documented in an alternate sectionGoals may be documented in an alternate sectionGoals may be documented in an alternate sectionGoals may be documented in an alternate sectionGoals may be documented in an alternate section INFORMATION SOURCE (unrecogn ized section and content) DATE CREATED AUTHOR 09/10/2025 [facility] FOR RECORDS PERTAINING TO PATIENTS WHO ARE OR HAVE BEEN ENROLLED IN A CHEMICAL DEPENDENCY/SUBSTANCEABUSE PROGRAM, SOME INFORMATION MAY BE OMITTED. This clinical summary was aggregated from multiple sources. Caution should be exercised in using it in the provision of clinical care. This summary normalizes information from multiple sources, and as a consequence, information in this document may materially change the coding, format and clinical context of patient data. In addition, data may be omitted in some cases. CLINICAL DECISIONS SHOULD BE BASED ON THE PRIMARY CLINICAL RECORDS. [facility]. provides no warranty or guarantee of the accuracy or completeness of information in this document.
== END | disposition home or self-care (01) ==
LOC: CVS 14:06
PROVIDERS: PCP Family Medicine; Referring Provider Internal Medicine Cardiovascular Disease; Visit Provider Internal Medicine Cardiovascular Disease
DX: R09.89 Other specified symptoms and signs involving the circulatory and respiratory systems (principal); I65.29 Occlusion and stenosis of unspecified carotid artery
CPT/HCPCS: 93880

== ENCOUNTER 2025-09-19 07:00 | Day surgery (SDC) | payer MEDICARE, SELFPAY ==
[2025-09-18 09:53] VITALS: BMI 28.1
--- NOTE | 2025-09-19 08:27 | CASEMGMT ---
Tertiary Insurance review for hospitals In-network with?[employer] HMO insurance if transfer is recommended is as follows: [facility], [facility], [place], [facility], [facility], [facility], , [place], [facility], [facility], and [place]. Sherita MAHONEYN RN CM
--- NOTE | 2025-09-19 08:36 | CL.D_ITS ---
Patient Name: JACQUI MAS Study Date: 09/19/2025 Performing: Aguila Villafuerte MD Ht: 62 inches 157.48 cm : 1950 Wt: 153.99 lbs 69.85 kg Age: 75 Gender: female BSA: 1.71 PROCEDURE(S) PERFORMED DC01-(12254)LHC/COR/LV CLINICAL PROFILE AND INDICATIONS Indications: Worsening Angina Heart Failure: None Stress/Imaging Coronary Calcium Score: Yes Calcium Score: 2000Calcium Score: 2000 CAD Presentations: Stable angina. 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 Preserved ejection fraction. RECOMMENDATIONS Surgery consult for coronary revascularization DESCRIPTION OF PROCEDURE The patient arrived to the procedure lab. The risks and benefits of the procedure as well as a full description of our services here and current unavailability of surgical backup were fully explained to the patient and/or their significant other prior to the catheterization. The Timeout was completed, verifying the correct patient and procedure. The patient's procedural site was prepped and draped in the usual fashion. Local anesthetic was given subcutaneously to right radial region with Lidocaine 2%. Using a modified Seldinger technique, arterial access was obtained via the right radial artery, a 6Fr sheath was inserted. Left Coronary Artery selective angiography was performed in multiple views using a 5 Fr. 4.0 [place] catheter. Right Coronary Artery selective angiography was then performed in multiple views using a 5 Fr. 4.0 [place] catheter. Left Ventriculography was performed in PLASCENCIA projection using a 5 Fr. Pigtail catheter. LV to AO pullback pressures were then recorded.The arterial sheath was pulled and a TR Band was applied for hemostasis - 10cc air CORONARY ANGIOGRAPHY DOMINANCE: Right Dominant LEFT HEART ASSESSMENT Left Ventricular Ejection Fraction: by LV Gram 65 % Inferior Basal Hypokinesis - Moderate Normal Left Ventricular systolic function LEFT MAIN: Moderate calcification, Mild ostial disease and mild distal disease present LEFT ANTERIOR DESCENDING ARTERY: Moderate calcification, Ostial calcified 80 to 90% lesion and mid 90 to 95% stenosis present. First diagonal vessel which bifurcates is also diffusely diseased with multiple areas of 90% stenosis present. Distally mild disease is noted with good distal targets. CIRCUMFLEX ARTERY: Nondominant vessel with proximal 80% stenosis and mid 80% stenosis present. RIGHT CORONARY ARTERY: Severe calcification Dominant vessel with significant calcification and totally occluded in the proximal region. There is extensive ezeq-vr-adgjb collaterals filling up to the mid to proximal segment of the right coronary artery COLLATERAL FLOW: Collateral flow from Left to Right VALVE FINDINGS: Aortic Valve Stenosis - mild COMPLICATIONS No Complications PROCEDURE MEDICATIONS Versed 1 mg IV Fentanyl 50 mcg IV Versed 1 mg IV Oxygen: 2 L/min via nasal cannula Heparin given IA 09/19/2025 08:06:37 Verapamil 2.5mg, Ntg 100mcgs, 3000 units of Heparin given IA 09/19/2025 08:06:37 IV Bolus: .9 NaCl 100 ml total 09/19/2025 08:11:04 SUMMARY OF HEMODYNAMIC DATA Time AIR REST ECG 07:24:05 AO 89/40 (59) SA 08:15:35 LV 112/-1, 4 08:20:56 LV 121/0, 6 08:21:02 LV 115/1, 11 08:21:42 LV 112/-1, 9 08:21:48 LVp 109/1, 7 08:22:10 AOp 103/43 (69) 08:22:16 08:35:01 Signed By Aguila Villafuerte MD On 09/19/2025 08:35:47 Aguila Villafuerte MD
== END 2025-09-19 10:30 | disposition home or self-care (01) ==
PROVIDERS: PCP Family Medicine; Referring Provider Internal Medicine Cardiovascular Disease; Visit Provider Internal Medicine Cardiovascular Disease
DX: I25.118 Atherosclerotic heart disease of native coronary artery with other forms of angina pectoris (principal); I35.0 Nonrheumatic aortic (valve) stenosis; I25.82 Chronic total occlusion of coronary artery
CPT/HCPCS: 93458; 99152; 99153; Q9967; C1769; C1894